=== PATIENT | male | born 1955 | race Caucasian/White ===

== ENCOUNTER 2022-02-21 15:35 | Emergency (ER) | payer MEDICARE, SELFPAY ==
[2022-02-21 15:36] VITALS: BP 151/67; PULSE 74; RESP 20; TEMP 36.7; O2SAT 96; BMI 29.9
--- NOTE | 2022-02-21 15:49 | ECG_ITS ---
APPROVED REPORT Exam: Resting ECG HR:75 bpm ECG Measurements Heart Rate 75 AXES HI 186 P 59 QRSd 108 QRS 65 QT 373 T 60 QTc 401 Conclusion SINUS RHYTHM POSSIBLE RIGHT VENTRICULAR CONDUCTION DELAY [RSR (QR) IN V1/V2] BORDERLINE ECG UNCONFIRMED REPORT Electronically signed by : Clif Schroeder MD 02/23/2022 17:36:22
--- NOTE | 2022-02-21 15:52 | HMH.EDGENADL ---
ED Disposition Clinical Impression: Tendonitis Disposition: Home, Self-Care Condition on Discharge: Good Additional Instructions: Take Tylenol and Motrin for pain, which will also help reduce the inflammation. Avoid doing repetitive motions of his right elbow for the next few days as this will worsen the numbness and tingling. Return to the emergency department for any new or concerning symptoms, please follow-up with your primary care physician to see how the symptoms are progressing. Referrals: Jignesh Seo MD [Primary Care Provider] - - Critical Care Critical Care Time: No Attestation: On 02/21/22, the high probability of a clinically significant, sudden or life threatening deterioration of the following system(s) required my full and direct attention, intervention and personal management. The time I documented below is in addition to time spent performing reported procedures but includes the following listed in this critical care notation. Medical Decision Making - Medical Records Medical records reviewed: Yes: I reviewed the patient's medical records. - Ryland Inquiry Pt receiving controlled substance: No Vital Signs: 02/21/22 15:36 02/21/22 16:00 Temperature 98.0 F Temperature Source Oral Pulse Rate 74 Pulse Rate [Left Radial] 74 Respiratory Rate 20 Blood Pressure 133/65 Blood Pressure [Right Arm] 151/67 H Blood Pressure Mean [Right Arm] 95 Blood Pressure Source [Right Arm] Automatic Cuff Blood Pressure Position [Right Arm] Sitting 02 Sat by Pulse Oximetry 96 95 Oxygen Delivery Method Room Air - Lab Data Lab results reviewed: Yes: I reviewed the patient's lab results. Lab Results 02/21/22 15:05: WBC 7.4, RBC 4.81, Hgb 15.3, Hct 44.8, MCV 93.1, MCH 31.7 H, MCHC 34.0, RDW 13.9, Plt Count 159, MPV 9.3, Neut % (Auto) 45.4, Lymph % (Auto) 45.1, [place] % (Auto) 4.8, Eos % (Auto) 3.1, Baso % (Auto) 1.5, Neut # (Auto) 3.4, Lymph # (Auto) 3.3, [place] # (Auto) 0.4, Eos # (Auto) 0.2, Baso # (Auto) 0.1 02/21/22 15:05: Sodium 137, Potassium 4.3, Chloride 103, Carbon Dioxide 31 H, Anion Gap 7.3, BUN 13, Creatinine 0.60 L, Estimated Creat Clear 92, Estimated GFR 135, Est GFR ( Amer) 163, Glucose 201 H, Calcium 8.9, Troponin I < 0.01 Result diagrams: 02/21/22 15:05 02/21/22 15:05 Orders (Tests/Meds): ED MEDICATIONS Generic Name Dose Route Start Last Admin Trade Name Freq PRN Reason Stop Dose Admin Sodium Chloride 10 ml 02/21/22 15:59 Sodium Chloride 0.9% 10ml Flush Syringe IV 03/23/22 15:58 NEEDED PRN Maintain IV Site ORDERS Category Date Time Status Troponin I Q3H Lab 02/21/22 19:00 Ordered Troponin I Q3H Lab 02/21/22 22:00 Ordered Medical Decision Narrative: Patient is a 66-year-old male presenting to the emergency department chief complaint of right forearm paresthesias, wrist pain. Differential diagnosis for this patient includes ulnar radiculopathy, intermittent of the lateral antebrachial cutaneous nerve, less, less likely is ACS. However given the patient's history as well the patient concern will order EKG, CBC, CMP, troponin, try to further evaluate. EKG shows normal sinus rhythm with no ST elevation or ST depression. QRS of normal duration. No significant CBC or CMP abnormality. Troponin for this patient was 0.01. Given the patient has had these same symptoms for the past 3 days without other concerning markers, will discharge patient. General Adult HPI - General Stated complaint: r arm numb Time Seen by Provider: 02/21/22 15:52 Mode of Arrival: Ambulatory - History of Present Illness HPI narrative: Patient is a 66-year-old male presenting to emergency department chief complaint of right forearm pain. Patient states that he has had numbness in this area for the past 3 days. He does have sensation to touch however states that he does not feel quite the same. He has pain when he is reaching out for an object. Patient is employed
--- NOTE | 2022-02-21 15:59 | XR_ITS ---
FINAL REPORT CLINICAL HISTORY: RIGHT ARM PAIN X 3 DAYS COMPARISON: 07/30/2016 FINDINGS: Two views of the chest were obtained. The heart size and pulmonary vascularity are within normal limits. The mediastinum is normal. No acute pulmonary abnormality is identified. There is no pneumothorax. The bony thorax is intact. IMPRESSION: No active cardiopulmonary disease. Reviewed, Interpreted and Dictated by Kendell Mendez III, MD Transcribed by Dejon Carreon Authenticated by Kendell Mendez III, MD on 02/21/2022 04:46:25 PM [facility]
[2022-02-21 16:00] VITALS: BP 133/65; PULSE 74; O2SAT 95
[2022-02-21 16:18] LABS: Basophils # 0.1 K/mm3 (0-0.2); Basophils % 1.5 % (0.1-2.0); Eosinophils # 0.2 K/mm3 (0.0-0.4); Eosinophils % 3.1 % (0.1-12.0); Hematocrit 44.8 % (42.0-52.0); Hemoglobin 15.3 g/dL (14.1-18.0); Lymphocytes # 3.3 K/mm3 (0.7-4.5); Lymphocytes % 45.1 % (10-50); Mean Corpuscular Hemoglobin 31.7 pg (27.0-31.2); Mean Corpuscular Volume 93.1 fl (80-94); Mean Platelet Volume 9.3 fl (7.4-10.4); Monocytes # 0.4 K/mm3 (0.1-1.0); Monocytes % 4.8 % (1.7-9.3); Neutrophils # 3.4 K/mm3 (1.8-7.8); Neutrophils % 45.4 % (37.0-80.0); Platelet Count 159 K/mm3 (142-424); Red Blood Count 4.81 M/mm3 (4.60-6.20); Red Cell Distribution Width 13.9 % (11.5-17.5); White Blood Count 7.4 K/mm3 (4.8-10.8)
[2022-02-21 16:24] LABS: Anion Gap 7.3 mEq/L (5-15); Blood Urea Nitrogen 13 mg/dl (9-20); Calcium 8.9 mg/dl (8.4-10.2); Carbon Dioxide 31 mmol/L (22.0-30.0); Chloride 103 mmol/L (98-107); Creatinine Clearance Estimated 92 mL/min (50-200); Estimated Glomerular Filt Rate 135 ml/min (>60); GFR (African American) 163 ML/MIN (>60); Glucose 201 mg/dl (74-100); Potassium 4.3 mmoL/L (3.5-5.1); Sodium 137 mmol/L (136-145)
[2022-02-21 16:30] VITALS: BP 129/60; PULSE 68; O2SAT 96
[2022-02-21 16:40] LABS: Troponin I < 0.01 ng/ml (0.00-0.034)
[2022-02-21 17:00] VITALS: BP 134/82; PULSE 68; O2SAT 96
[2022-02-21 17:18] VITALS: BP 134/82; PULSE 68; RESP 16; TEMP 36.7; O2SAT 96
== END 2022-02-21 17:19 | disposition home or self-care (01) ==
PROVIDERS: Emergency Provider Emergency Medicine; PCP Emergency Medicine
DX: M65.231 Calcific tendinitis, right forearm (principal); I25.2 Old myocardial infarction
CPT/HCPCS: 71046; 80048; 84484; 85025; 93005; 99283

== ENCOUNTER 2022-03-26 21:31 | Emergency (ER) | payer MEDICARE, SELFPAY ==
[2022-03-26 21:41] VITALS: BP 165/78; PULSE 72; RESP 18; TEMP 36.8; O2SAT 94; BMI 27.9
--- NOTE | 2022-03-26 21:43 | ECG_ITS ---
APPROVED REPORT Exam: Resting ECG HR:74 bpm ECG Measurements Heart Rate 74 AXES ME 176 P 39 QRSd 100 QRS 68 QT 366 T 67 QTc 393 Conclusion SINUS RHYTHM NORMAL ECG UNCONFIRMED REPORT Electronically signed by : Clif Schroeedr MD 03/27/2022 08:20:51
--- NOTE | 2022-03-26 21:50 | XR_ITS ---
PROCEDURE INFORMATION: Exam: XR Right Shoulder Exam date and time: 03/26/2022 9:59 PM Age: 66 years old Clinical indication: Pain; Shoulder; Right; Additional info: Pain no known trauma TECHNIQUE: Imaging protocol: XR Right shoulder. Views: 2 or more views. COMPARISON: CR XR CHEST 2V 03/26/2022 9:56 PM FINDINGS: Bones/joints: Degenerative changes. No evidence of acute fracture. Soft tissues: Grossly unremarkable. IMPRESSION: No evidence of acute fracture. If symptoms persist, recommend repeat radiograph in 5-7 days.
--- NOTE | 2022-03-26 21:50 | XR_ITS ---
PROCEDURE INFORMATION: Exam: XR Chest Exam date and time: 03/26/2022 9:56 PM Age: 66 years old Clinical indication: Pain; Right-sided; Additional info: RT shoulder pain (cp protocol) TECHNIQUE: Imaging protocol: XR of the chest. Views: 2 views. COMPARISON: CR XR CHEST 2V 02/21/2022 4:05 PM FINDINGS: Lungs: No focal consolidation. Pleural spaces: No pleural effusion. No pneumothorax. Heart/Mediastinum: Unremarkable cardiomediastinal silhouette. Bones/joints: No acute osseous findings. IMPRESSION: No focal consolidation.
--- NOTE | 2022-03-26 21:50 | XR_ITS ---
PROCEDURE INFORMATION: Exam: XR Right Elbow Exam date and time: 03/26/2022 9:53 PM Age: 66 years old Clinical indication: Pain; Elbow; Right; Additional info: Pain no known trauma TECHNIQUE: Imaging protocol: XR Right elbow. Views: 3 or more views. COMPARISON: No relevant prior studies available. FINDINGS: Bones/joints: No evidence of acute fracture. No definite joint effusion. Degenerative changes. Soft tissues: Grossly unremarkable. IMPRESSION: No evidence of acute fracture. If symptoms persist, recommend repeat radiograph in 5-7 days.
[2022-03-26 22:29] LABS: Basophils # 0.2 K/mm3 (0-0.2); Basophils % 1.8 % (0.1-2.0); Eosinophils # 0.3 K/mm3 (0.0-0.4); Eosinophils % 3.8 % (0.1-12.0); Hematocrit 46.6 % (42.0-52.0); Lymphocytes % 45.8 % (10-50); Mean Corpuscular HGB Conc 34.4 g/dL (31.8-35.4); Mean Corpuscular Volume 92.9 fl (80-94); Mean Platelet Volume 8.8 fl (7.4-10.4); Monocytes # 0.5 K/mm3 (0.1-1.0); Monocytes % 6.1 % (1.7-9.3); Neutrophils # 3.7 K/mm3 (1.8-7.8); Neutrophils % 42.5 % (37.0-80.0); Platelet Count 180 K/mm3 (142-424); Red Blood Count 5.02 M/mm3 (4.60-6.20); Red Cell Distribution Width 13.8 % (11.5-17.5); White Blood Count 8.7 K/mm3 (4.8-10.8)
--- NOTE | 2022-03-26 22:29 | HMH.EDEXTP ---
ED Disposition Clinical Impression: Cervical radicular pain Disposition: Home, Self-Care Condition on Discharge: Good Instructions: DI for Cervical Radiculopathy Additional Instructions: use meds and see pcp for follow up Prescriptions: predniSONE [Prednisone 20mg Tab] 20 mg PO BID #10 tab Transmission Status: Pending to [facility] Ketorolac Tromethamine [Toradol 10mg tablet] 10 mg PO Q6HP PRN #8 tab MDD 40mg/day PRN Reason: Moderate To Severe Pain Transmission Status: Pending to [facility] Referrals: Jignesh Seo MD [Primary Care Provider] - - Critical Care Critical Care Time: No Attestation: On 03/26/22, the high probability of a clinically significant, sudden or life threatening deterioration of the following system(s) required my full and direct attention, intervention and personal management. The time I documented below is in addition to time spent performing reported procedures but includes the following listed in this critical care notation. Medical Decision Making - Medical Records Medical records reviewed: Yes: I reviewed the patient's medical records. - Ryland Inquiry Pt receiving controlled substance: No Vital Signs: 03/26/22 21:41 Temperature 98.3 F Temperature Source Oral Pulse Rate [Apical] 72 Respiratory Rate 18 Blood Pressure [Right Arm] 165/78 H Blood Pressure Mean [Right Arm] 107 Blood Pressure Source [Right Arm] Automatic Cuff Blood Pressure Position [Right Arm] Sitting 02 Sat by Pulse Oximetry 94 L Oxygen Delivery Method Room Air - Lab Data Lab results reviewed: Yes: I reviewed the patient's lab results. Lab Results 03/26/22 22:22: WBC 8.7, RBC 5.02, Hgb 16.0, Hct 46.6, MCV 92.9, MCH 32.0 H, MCHC 34.4, RDW 13.8, Plt Count 180, MPV 8.8, Neut % (Auto) 42.5, Lymph % (Auto) 45.8, [place] % (Auto) 6.1, Eos % (Auto) 3.8, Baso % (Auto) 1.8, Neut # (Auto) 3.7, Lymph # (Auto) 4.0, [place] # (Auto) 0.5, Eos # (Auto) 0.3, Baso # (Auto) 0.2, ESR 11 03/26/22 22:22: Sodium 139, Potassium 4.1, Chloride 104, Carbon Dioxide 28, Anion Gap 11.1, BUN 10, Creatinine 0.60 L, Estimated Creat Clear 91, Estimated GFR 135, Est GFR ( Amer) 163, Glucose 164 H, Calcium 9.1, Total Bilirubin 0.6, AST 28, ALT 25, Alkaline Phosphatase 109, Troponin I < 0.01, C-Reactive Protein 4.2 H, Total Protein 6.6, Albumin 4.0, Globulin 2.6, Albumin/Globulin Ratio 1.5, Procalcitonin 0.072 Result diagrams: 03/26/22 22:22 03/26/22 22:22 Orders (Tests/Meds): ED MEDICATIONS Generic Name Dose Route Start Last Admin Trade Name Freq PRN Reason Stop Dose Admin Sodium Chloride 1,000 mls @ 999 mls/hr 03/26/22 22:00 03/26/22 22:24 Sod Chlor 0.9% 1000ml Bag IV 03/26/22 23:00 999 mls/hr .Q1H1M NIKKI Administration Discontinued Medications Generic Name Dose Route Start Last Admin Trade Name Freq PRN Reason Stop Dose Admin Hydromorphone HCl 1 mg 03/26/22 22:59 03/26/22 23:06 Hydromorphone 2mg/Ml Syringe IV 03/26/22 23:00 1 mg ONCE ONE Administration Ketorolac Tromethamine 30 mg 03/26/22 21:52 03/26/22 22:24 Ketorolac 30mg/Ml Vial IV 03/26/22 21:53 30 mg ONCE ONE Administration Methylprednisolone Sodium Succinate 125 mg 03/26/22 22:59 03/26/22 23:05 Methylprednisolone Sod Succ 125mg Vial IV 03/26/22 23:00 125 mg ONCE ONE Administration ORDERS Category Date Time Status Troponin I Q3H Lab 03/27/22 01:00 Ordered Troponin I Q3H Lab 03/27/22 04:00 Ordered - Radiology Data #1 Image(s): Chest, C-Spine, Shoulder, Elbow Image Reviewed: Yes I have reviewed radiologist's interpretation Preliminary Findings: No Fracture Seen - ECG Data Tracing #1 Normal Sinus Rhythm: Yes Ischemic changes: non-specific ST-T wave changes - KRISTI Score for Non-Stemi Age of Patient: 60-69 years old Heart Rate: 70-89 bpm Systolic Blood Pressure: 160-199 mmHg Serum Creatinine: 0.40-0.79 mg/dl CHF [place] Class: I-No CHF Other Risk Factors
--- NOTE | 2022-03-26 22:30 | XR_ITS ---
PROCEDURE INFORMATION: Exam: XR Cervical Spine Exam date and time: 03/26/2022 10:48 PM Age: 66 years old Clinical indication: Neck pain; Additional info: Neck pain radiating down RT arm TECHNIQUE: Imaging protocol: XR of the cervical spine. Views: 4 or 5 views. COMPARISON: CR XR SHOULDER RT MIN 2V 03/26/2022 9:59 PM FINDINGS: Bones/joints: Limited study as the tip of the odontoid process is not well visualized. Otherwise no definite evidence of acute fracture in the cervical spine. Soft tissues: Unremarkable. IMPRESSION: Limited study as the tip of the odontoid process is not well visualized. Otherwise no definite evidence of acute fracture in the cervical spine.
[2022-03-26 22:37] LABS: Alanine Aminotransferase 25 U/L (12-78); Albumin/Globulin Ratio 1.5 (1.1-1.8); Alkaline Phosphatase 109 U/L (38-126); Anion Gap 11.1 mEq/L (5-15); Aspartate Amino Transferase 28 U/L (17-59); Bilirubin,Total 0.6 mg/dl (0.2-1.3); Blood Urea Nitrogen 10 mg/dl (9-20); Calcium 9.1 mg/dl (8.4-10.2); Carbon Dioxide 28 mmol/L (22.0-30.0); Chloride 104 mmol/L (98-107); Creatinine Clearance Estimated 91 mL/min (50-200); Estimated Glomerular Filt Rate 135 ml/min (>60); GFR (African American) 163 ML/MIN (>60); Globulin 2.6 g/dL (1.3-3.2); Glucose 164 mg/dl (74-100); Potassium 4.1 mmoL/L (3.5-5.1); Sodium 139 mmol/L (136-145); Total Protein,Serum 6.6 g/dl (6.3-8.2)
[2022-03-26 22:42] LABS: C-Reactive Protein 4.2 mg/L (0-4)
[2022-03-26 22:52] LABS: Erythrocyte Sedimentation Rate 11 mm/hr (0-20); Troponin I < 0.01 ng/ml (0.00-0.034)
[2022-03-26 22:56] LABS: Procalcitonin 0.072 ng/mL (0.0-2.0)
[2022-03-26 23:10] VITALS: BP 124/73
[2022-03-26 23:30] VITALS: BP 147/71
[2022-03-26 23:41] VITALS: BP 160/70; PULSE 70; RESP 18; TEMP 36.8; O2SAT 99
== END 2022-03-26 23:45 | disposition home or self-care (01) ==
PROVIDERS: Emergency Provider Emergency Medicine; PCP Emergency Medicine
DX: M54.2 Cervicalgia (principal); M54.12 Radiculopathy, cervical region; M25.511 Pain in right shoulder; Z79.82 Long term (current) use of aspirin; Z79.899 Other long term (current) drug therapy; Z88.6 Allergy status to analgesic agent; I25.2 Old myocardial infarction
CPT/HCPCS: 71046; 72050; 73030; 73080; 80053; 84145; 84484; 85025; 85651; 86140; 93005; 96360; 96365; 96375; 99284

== ENCOUNTER 2022-04-17 10:05 | Emergency (ER) | payer MEDICARE, SELFPAY ==
[2022-04-17] VITALS (9 sets, daily range): BP systolic 107–126; BP diastolic 60–68; PULSE 65–73; RESP 13–18; TEMP 36.9; O2SAT 93–98; BMI 27.8
--- NOTE | 2022-04-17 10:56 | ECG_ITS ---
APPROVED REPORT Exam: Resting ECG HR:70 bpm ECG Measurements Heart Rate 70 AXES MN 181 P 53 QRSd 109 QRS 62 QT 375 T 47 QTc 396 Conclusion SINUS RHYTHM POSSIBLE RIGHT VENTRICULAR CONDUCTION DELAY [RSR (QR) IN V1/V2] BORDERLINE ECG UNCONFIRMED REPORT Electronically signed by : Clif Schroeder MD 04/21/2022 21:25:09
--- NOTE | 2022-04-17 11:08 | HMH.EDGENADL ---
ED Disposition Clinical Impression: Acute exacerbation of chronic obstructive airways disease Disposition: Home, Self-Care Condition on Discharge: Fair Instructions: DI for Emphysema Additional Instructions: Follow-up with your primary care physician a appointment on Monday. Would also recommend that you get referred to a boat outfitter. Referrals: Rikki Scott [Primary Care Provider] - - Critical Care Critical Care Time: No Attestation: On 04/17/22, the high probability of a clinically significant, sudden or life threatening deterioration of the following system(s) required my full and direct attention, intervention and personal management. The time I documented below is in addition to time spent performing reported procedures but includes the following listed in this critical care notation. Medical Decision Making - Medical Records Medical records reviewed: Yes: I reviewed the patient's medical records. - Ryland Inquiry Pt receiving controlled substance: No Vital Signs: 04/17/22 10:06 04/17/22 11:00 04/17/22 11:25 Temperature 98.4 F Temperature Source Oral Pulse Rate 65 69 Pulse Rate [Left Radial] 73 Respiratory Rate 18 16 Blood Pressure 116/64 Blood Pressure [Right Arm] 121/60 Blood Pressure Mean 93 Blood Pressure Mean [Right Arm] 80 Blood Pressure Source [Right Arm] Automatic Cuff Blood Pressure Position [Right Arm] Sitting 02 Sat by Pulse Oximetry 96 96 Oxygen Delivery Method Room Air Room Air 04/17/22 11:31 04/17/22 12:00 04/17/22 12:46 Temperature Temperature Source Pulse Rate 73 73 69 Pulse Rate [Left Radial] Respiratory Rate 13 18 Blood Pressure 112/61 121/68 118/67 Blood Pressure [Right Arm] Blood Pressure Mean 87 86 85 Blood Pressure Mean [Right Arm] Blood Pressure Source [Right Arm] Blood Pressure Position [Right Arm] 02 Sat by Pulse Oximetry 98 93 L 95 Oxygen Delivery Method Room Air Room Air 04/17/22 13:00 04/17/22 13:31 Temperature Temperature Source Pulse Rate 70 69 Pulse Rate [Left Radial] Respiratory Rate 14 14 Blood Pressure 126/67 118/66 Blood Pressure [Right Arm] Blood Pressure Mean 93 86 Blood Pressure Mean [Right Arm] Blood Pressure Source [Right Arm] Blood Pressure Position [Right Arm] 02 Sat by Pulse Oximetry 98 96 Oxygen Delivery Method Orders (Tests/Meds): ED MEDICATIONS Generic Name Dose Route Start Last Admin Trade Name Freq PRN Reason Stop Dose Admin Albuterol Sulfate 2 puff 04/17/22 13:57 Albuterol-Hfa 90mcg/Puff Inhaler 8gm IH 05/17/22 13:56 Q6HP PRN Shortness Of Breath Discontinued Medications Generic Name Dose Route Start Last Admin Trade Name Freq PRN Reason Stop Dose Admin Albuterol/Ipratropium 9 ml 04/17/22 12:59 Ipratropium/Albuterol 3 Ml Neb IH 04/17/22 13:00 ONCE ONE Methylprednisolone Sodium Succinate 125 mg 04/17/22 12:59 04/17/22 13:44 Methylprednisolone Sod Succ 125mg Vial IV 04/17/22 13:00 125 mg ONCE ONE Administration Miscellaneous 1 unit 04/17/22 13:57 Aerochamber/Optihaler MC 04/17/22 13:58 ONCE ONE Ondansetron HCl 4 mg 04/17/22 13:56 Ondansetron 4mg/2ml Vial IV 04/17/22 13:57 ONCE ONE Medical Decision Narrative: Patient is a 66-year-old male presented to emergency department chief complaint of shortness of breath. Patient states that he has acute on chronic shortness of breath, he is currently felt more short of breath over the past 3 days. States that when he generally comes into the emergency department and has a nebulization he has improvement in this. Differential diagnosis for this patient includes pneumonia, COPD, pleural effusion, pulmonary fibrosis, and others. Patient is hemodynamically stable, saturating well on room air, nontachycardic afebrile. Given this ordered duo nebs for patient as well as chest x-ray. Patient had minimal improvement after first DuoNeb, patient w
--- NOTE | 2022-04-17 11:15 | XR_ITS ---
PROCEDURE INFORMATION: Exam: XR Chest Exam date and time: 04/17/2022 11:40 AM Age: 66 years old Clinical indication: Shortness of breath; Additional info: Wheezing, SOA TECHNIQUE: Imaging protocol: XR of the chest. Views: 1 view. COMPARISON: CR XR CHEST 2V 03/26/2022 9:56 PM FINDINGS: Lungs: COPD, interstitial prominence, and chronic granulomatous disease. Pleural spaces: No pleural effusion. Heart/Mediastinum: Epicardial fat, without cardiomegaly. Vasculature: Calcification of the thoracic aorta. Bones/joints: Degenerative change. IMPRESSION: COPD, interstitial prominence, and chronic granulomatous disease.
--- NOTE | 2022-04-17 13:44 | PC.NURSE ---
pt refused breathing tx per resp
== END 2022-04-17 14:31 | disposition home or self-care (01) ==
PROVIDERS: Emergency Provider Emergency Medicine; PCP Internal Medicine
DX: J44.1 Chronic obstructive pulmonary disease with (acute) exacerbation (principal); I25.2 Old myocardial infarction; Z88.5 Allergy status to narcotic agent
CPT/HCPCS: 71045; 93005; 96374; 96375; 99284; J2405

== ENCOUNTER 2022-05-27 17:00 | Outpatient (RCR) | payer MEDICARE, SELFPAY | END 2022-05-27 17:05 | disposition home or self-care (01) | LOC: PT 17:00 | PROVIDERS: PCP Emergency Medicine; Visit Provider Internal Medicine | DX: M25.511 Pain in right shoulder (principal) | CPT/HCPCS: 97010; 97012; 97014; 97033; 97035; 97110; 97163; 97164; G0283 ==

== ENCOUNTER 2023-03-16 18:35 | Emergency (ER) | payer MEDICARE, SELFPAY ==
[2023-03-16] VITALS (8 sets, daily range): BP systolic 124–151; BP diastolic 56–82; PULSE 84–113; RESP 17; TEMP 37.2–38.1; O2SAT 91–97; BMI 29.2
--- NOTE | 2023-03-16 19:00 | HMH.EDGENADL ---
Discharge Plan Disposition Patient Disposition: Still a Patient Prescriptions Prescriptions: No Action atorvastatin 40 MG tablet 40 mg PO HS clopidogrel 75 MG tablet 75 mg PO DAILY lisinopril 10 MG tablet 10 mg PO DAILY metoprolol tartrate 25 MG tablet 25 mg PO BID aspirin 81 MG tablet,chewable 81 mg PO DAILY prednisone 20 MG tablet 20 mg PO BID Qty: 10 0RF ketorolac 10 MG tablet 10 mg PO Q6HP MDD 40mg/day PRN (Reason: Moderate To Severe Pain) Qty: 8 0RF Rx Instructions: Therapy initiated with IV/IM dose Referrals Follow up/Referrals: Clif Schroeder MD [Primary Care Provider] - See instructions Clinical Impressions Clinical Impression: Acute exacerbation of chronic obstructive airways disease Discharge ED Provider: Denise Sahni General Adult HPI General Chief complaint: Upper Respiratory Infection Stated complaint: Cough, Back pain, Chills, Diziness Time Seen by Provider: 03/16/23 19:00 Mode of Arrival: Ambulatory Source of Information: Patient Limitations: No Limitations Description of Symptoms (Recalled from ER Triage Doc. by RN): pt to ED with cough, congestion and body aches x 1 week accompanied by nausea and diarrhea since monday night. pt does report they were exposed to their daughter who had a stomach virus over the weekend. pt denies any chest pain or SOB at this time. History of Present Illness HPI narrative: Patient is a 67-year-old male with a history of COPD and coronary disease presenting today with 4 days of fevers chills cough some nausea vomiting diarrhea. This began with nausea vomiting diarrhea but since that time those symptoms resolved and now has fever chills cough some increasing wheezing. Tmax of 102 at home has not had any antipyretics today. Patient states that he still nauseated at the moment denies any significant abdominal pain or chest pain. Related Data Home Medications Medication Instructions Recorded Confirmed aspirin 81 mg chewable tablet 81 mg PO DAILY heart health 03/26/22 03/26/22 atorvastatin 40 mg tablet 40 mg PO HS Cholesterol 03/26/22 03/26/22 clopidogrel 75 mg tablet 75 mg PO DAILY antiplatelet 03/26/22 03/26/22 lisinopril 10 mg tablet 10 mg PO DAILY Hypertension 03/26/22 03/26/22 metoprolol tartrate 25 mg tablet 25 mg PO BID hypertension 03/26/22 03/26/22 Previous Rx's Medication Instructions Recorded ketorolac 10 mg tablet 10 mg PO Q6HP PRN Moderate To 03/26/22 Severe Pain #8 tabs prednisone 20 mg tablet 20 mg PO BID #10 tabs 03/26/22 Allergies Allergy/AdvReac Type Severity Reaction Status Date / Time codeine [CODEINE] Allergy Unknown Rash Verified 03/26/22 22:17 [facility] Disclaimer: The information contained in this section may have been updated after the patient was seen, as this information can be updated by other users. Social History Smoking Status: Never smoker alcohol intake: never current occupational status: other Travel in the last 8 weeks: None ROS Obtained: Yes All systems reviewed & no additional complaints except as documented Physical Exam General General appearance: alert and in no apparent distress Respiratory Respiratory exam: Present other (Diffuse wheezing most focally right lower lobe no excess or muscle use no prolonged expiratory phase speaking in full sentences) Cardiovascular Cardiovascular exam: Present tachycardia and other (Good peripheral perfusion) Neurological Exam Neurological exam: Present alert Medical Decision Making Ryland Inquiry Pt receiving controlled substance: No Vital Signs: 03/16/23 18:37 Temperature 100.6 F H Temperature Source Oral Pulse Rate [Left Radial] 113 H Respiratory Rate 17 Blood Pressure [Right Arm] 151/80 H Blood Pressure Mean [Right Arm] 103 Blood Pressure Source [Right Arm] Automatic Cuff Blood Pressure Position [Right Arm] Sitting 02 Sat by Pulse Oximetry 97 Oxygen Delivery Method Room Air Orders
[2023-03-16 19:03] LABS: Coronavirus 19, PCR Not Detected (NotDetected); Influenza A, PCR Not Detected (NotDetected); Influenza B, PCR Not Detected (NotDetected)
--- NOTE | 2023-03-16 19:09 | XR_ITS ---
PROCEDURE INFORMATION: Exam: XR Chest Exam date and time: 03/16/2023 7:28 PM Age: 67 years old Clinical indication: Dyspnea TECHNIQUE: Imaging protocol: Radiologic exam of the chest. Views: 1 view. COMPARISON: CR XR CHEST PORTABLE 04/17/2022 11:40 AM FINDINGS: Lungs: Unremarkable. No consolidation. Pleural spaces: Unremarkable. No pleural effusion. No pneumothorax. Heart/Mediastinum: Unremarkable. No cardiomegaly. Bones/joints: Moderate degenerative changes noted in the spine and shoulders. IMPRESSION: No acute disease
[2023-03-16 21:05] LABS: Basophils % 0.2 % (0.1-2.0); Eosinophils # 0.1 K/mm3 (0.0-0.4); Eosinophils % 0.4 % (0.1-12.0); Hematocrit 42.6 % (42.0-52.0); Hemoglobin 14.1 g/dL (14.1-18.0); Lymphocytes # 1.9 K/mm3 (0.7-4.5); Lymphocytes % 11.1 % (10-50); Mean Corpuscular HGB Conc 33.1 g/dL (31.8-35.4); Mean Corpuscular Hemoglobin 29.7 pg (27.0-31.2); Mean Corpuscular Volume 89.6 fl (80-94); Mean Platelet Volume 9.2 fl (7.4-10.4); Monocytes # 0.8 K/mm3 (0.1-1.0); Monocytes % 4.8 % (1.7-9.3); Neutrophils # 14.2 K/mm3 (1.8-7.8); Neutrophils % 83.4 % (37.0-80.0); Platelet Count 164 K/mm3 (142-424); Red Blood Count 4.75 M/mm3 (4.60-6.20); Red Cell Distribution Width 13.8 % (11.5-17.5); White Blood Count 17.1 K/mm3 (4.8-10.8)
[2023-03-16 21:07] LABS: MANUAL DIFFERENTIAL MANUAL DIFFERENTIAL (MANUAL DIFF)
[2023-03-16 21:17] LABS: Alanine Aminotransferase 29 U/L (12-78); Albumin Level 3.6 g/dl (3.5-5.0); Albumin/Globulin Ratio 1.1 (1.1-1.8); Alkaline Phosphatase 97 U/L (38-126); Anion Gap 13.1 mEq/L (5-15); Aspartate Amino Transferase 33 U/L (17-59); Bilirubin,Total 1.4 mg/dl (0.2-1.3); Blood Urea Nitrogen 11 mg/dl (9-20); Calcium 8.6 mg/dl (8.4-10.2); Carbon Dioxide 23 mmol/L (22.0-30.0); Chloride 99 mmol/L (98-107); Creatinine Clearance Estimated 97 mL/min (50-200); Estimated Glomerular Filt Rate 134 ml/min (>60); GFR (African American) 163 ML/MIN (>60); Globulin 3.2 g/dL (1.3-3.2); Glucose 140 mg/dl (74-100); Potassium 4.1 mmoL/L (3.5-5.1); Sodium 131 mmol/L (136-145); Total Protein,Serum 6.8 g/dl (6.3-8.2)
[2023-03-16 21:29] LABS: Lymphocytes % 10 % (10-50); Monocytes % 5 % (2-9); Neutrophils % 85 % (42-76); Total Cells Counted 100
[2023-03-16 21:30] LABS: Platelet Estimate Normal; RBC Morphology Normal
== END 2023-03-16 21:36 | disposition home or self-care (01) ==
PROVIDERS: Emergency Provider Student in an Organized Health Care Education/Training Program; PCP Internal Medicine Adolescent Medicine
DX: J44.1 Chronic obstructive pulmonary disease with (acute) exacerbation (principal); R11.2 Nausea with vomiting, unspecified; R19.7 Diarrhea, unspecified
CPT/HCPCS: 71045; 80053; 85007; 85025; 96374; 99285; C9803; U0003; U0005

== ENCOUNTER → 2023-04-03 08:37 | Outpatient (CLI) | payer MEDICARE, SELFPAY ==
[2023-04-03 09:03] LABS: Basophils # 0.1 K/mm3 (0-0.2); Basophils % 1.1 % (0.1-2.0); Eosinophils # 0.2 K/mm3 (0.0-0.4); Eosinophils % 3.5 % (0.1-12.0); Hematocrit 44.9 % (42.0-52.0); Hemoglobin 14.5 g/dL (14.1-18.0); Lymphocytes # 2.5 K/mm3 (0.7-4.5); Lymphocytes % 42.2 % (10-50); Mean Corpuscular HGB Conc 32.3 g/dL (31.8-35.4); Mean Corpuscular Hemoglobin 29.5 pg (27.0-31.2); Mean Corpuscular Volume 91.4 fl (80-94); Mean Platelet Volume 8.2 fl (7.4-10.4); Monocytes # 0.3 K/mm3 (0.1-1.0); Monocytes % 4.7 % (1.7-9.3); Neutrophils # 2.9 K/mm3 (1.8-7.8); Neutrophils % 48.5 % (37.0-80.0); Platelet Count 203 K/mm3 (142-424); Red Blood Count 4.91 M/mm3 (4.60-6.20); Red Cell Distribution Width 14.3 % (11.5-17.5)
[2023-04-03 09:17] LABS: Hemoglobin A1C 6.1 % (4.0-6.0)
[2023-04-03 09:49] LABS: Chloride 99 mmol/L (98-107); Potassium 4.7 mmoL/L (3.5-5.1); Sodium 136 mmol/L (136-145)
[2023-04-03 09:52] LABS: Alanine Aminotransferase 28 U/L (12-78); Albumin Level 3.6 g/dl (3.5-5.0); Albumin/Globulin Ratio 1.4 (1.1-1.8); Alkaline Phosphatase 101 U/L (38-126); Anion Gap 11.7 mEq/L (5-15); Aspartate Amino Transferase 25 U/L (17-59); Bilirubin,Total 0.5 mg/dl (0.2-1.3); Blood Urea Nitrogen 10 mg/dl (9-20); Carbon Dioxide 30 mmol/L (22.0-30.0); Cholesterol 125 mg/dl (140-200); Estimated Glomerular Filt Rate 134 ml/min (>60); GFR (African American) 163 ML/MIN (>60); Globulin 2.5 g/dL (1.3-3.2); Glucose 111 mg/dl (74-100); Total Protein,Serum 6.1 g/dl (6.3-8.2); Triglycerides 112 mg/dl (30-150); VLDL Cholesterol 22 mg/dL (0-40)
[2023-04-03 09:53] LABS: Chol/HDL Ratio 2.4 (1-3.5); HDL Cholesterol 53 mg/dl (40-60)
[2023-04-03 10:03] LABS: Direct LDL Cholesterol 61.97 mg/dL (100-129)
[2023-04-04 09:14] LABS: PSA, Free 0.39 ng/mL; Prostate Specific Ag 3.2 ng/mL (0.0-4.0)
== END ==
LOC: LAB 08:39
PROVIDERS: PCP Internal Medicine Adolescent Medicine; Visit Provider Nurse Practitioner Family
DX: I25.10 Atherosclerotic heart disease of native coronary artery without angina pectoris (principal); I10 Essential (primary) hypertension; R63.4 Abnormal weight loss; R39.12 Poor urinary stream
CPT/HCPCS: 36415; 80053; 80061; 83036; 84153; 84154; 84443; 85025

== ENCOUNTER → 2023-05-02 15:21 | Outpatient (POV) | payer MEDICARE, SELFPAY | PROVIDERS: Visit Provider Dermatology | DX: Z00.00 Encounter for general adult medical examination without abnormal findings (principal) ==

== ENCOUNTER 2024-02-02 21:29 | Emergency (ER) | payer MEDICARE, SELFPAY ==
[2024-02-02 21:31] VITALS: BP 152/77; PULSE 85; RESP 16; TEMP 36.9; O2SAT 97; BMI 30.4
--- NOTE | 2024-02-02 21:45 | XR_ITS ---
PROCEDURE INFORMATION: Exam: XR Chest Exam date and time: 02/02/2024 9:43 PM Age: 68 years old Clinical indication: Cough; Additional info: Congestion TECHNIQUE: Imaging protocol: Radiologic exam of the chest. Views: 2 views. COMPARISON: CR XR CHEST PORTABLE 03/16/2023 7:28 PM FINDINGS: Lungs: Mild pulmonary vascular congestion. Few scattered calcified granulomas Pleural spaces: No pleural effusion. No pneumothorax. Heart/Mediastinum: No cardiomegaly. Calcified atherosclerotic changes of the thoracic aorta. Bones/joints: No acute findings. IMPRESSION: Mild pulmonary vascular congestion.
[2024-02-02 21:47] LABS: Coronavirus 19, PCR Not Detected (NotDetected); Influenza A, PCR Not Detected (NotDetected); Influenza B, PCR Not Detected (NotDetected)
--- NOTE | 2024-02-02 22:06 | ED_ITS ---
Discharge Plan Disposition Patient Disposition: Home, Self-Care Prescriptions Prescriptions: New doxycycline hyclate 100 mg capsule 100 mg PO BID 5 Days Qty: 10 0RF prednisone 20 mg tablet 40 mg PO DAILY 5 Days Qty: 10 0RF No Action atorvastatin 40 MG tablet 40 mg PO HS clopidogrel 75 MG tablet 75 mg PO DAILY lisinopril 10 MG tablet 10 mg PO DAILY metoprolol tartrate 25 MG tablet 25 mg PO BID aspirin 81 MG tablet,chewable 81 mg PO DAILY prednisone 20 MG tablet 20 mg PO BID Qty: 10 0RF ketorolac 10 MG tablet 10 mg PO Q6HP MDD 40mg/day PRN (Reason: Moderate To Severe Pain) Qty: 8 0RF Rx Instructions: Therapy initiated with IV/IM dose doxycycline hyclate 100 mg capsule 100 mg PO BID 10 Days Qty: 20 0RF prednisone 50 mg tablet 50 mg PO DAILY 5 Days Qty: 5 0RF Rx Instructions: Please begin 1 day after ED visit albuterol sulfate 90 mcg/actuation HFA aerosol inhaler 4 inh inhalation Q4H PRN (Reason: shortness of breath or wheezing) Qty: 8.5 0RF Rx Instructions: 4 puffs every 4 hours for 48 hours then as needed for shortness of breath or wheezing following Referrals Follow up/Referrals: Provider,Referral, MD [Primary Care Provider] - See instructions Activity Restrictions/Add. Instructions Additional Instructions/Restrictions: Call your family doctor to establish care for this visit to the emergency department and schedule follow-up within 48 hours to ensure improvement. If you have any worsening of your condition or any other concerning signs or symptoms, return to the emergency department or your primary care doctor for further evaluation. Doxycycline twice daily for 5 days. Prednisone once daily every morning for 5 days. Clinical Impressions Clinical Impression: Acute exacerbation of chronic obstructive pulmonary disease Discharge ED Provider: William Mosquera General Adult HPI General Chief complaint: Upper Respiratory Infection Stated complaint: st chest congestion persistant cough silverio Time Seen by Provider: 02/02/24 21:43 Mode of Arrival: Ambulatory Source of Information: Patient Limitations: No Limitations Description of Symptoms (Recalled from ER Triage Doc. by RN): pt c/o Silverio,sore throat, cough,chest congestion x 7 days History of Present Illness HPI narrative: Is a 68-year-old male with history of COPD, CAD on aspirin and Plavix per his cough and chest congestion. This been going on for about a week, getting worse. Patient states that he is coughing more sputum than usual it is white, thick, frothy. Chest pain, nausea or vomiting, fevers or chills, diarrhea or constipation. States that he gets to coughing and cannot stop. Came to the emergency department for this reason. Related Data Home Medications Medication Instructions Recorded Confirmed aspirin 81 mg chewable tablet 81 mg PO DAILY heart health 03/26/22 03/26/22 atorvastatin 40 mg tablet 40 mg PO HS Cholesterol 03/26/22 03/26/22 clopidogrel 75 mg tablet 75 mg PO DAILY antiplatelet 03/26/22 03/26/22 lisinopril 10 mg tablet 10 mg PO DAILY Hypertension 03/26/22 03/26/22 metoprolol tartrate 25 mg tablet 25 mg PO BID hypertension 03/26/22 03/26/22 Previous Rx's Medication Instructions Recorded ketorolac 10 mg tablet 10 mg PO Q6HP PRN Moderate To 03/26/22 Severe Pain #8 tabs prednisone 20 mg tablet 20 mg PO BID #10 tabs 03/26/22 albuterol sulfate 90 mcg/actuation 4 inh inhalation Q4H PRN shortness 03/16/23 aerosol inhaler of breath or wheezing #8.5 grams doxycycline hyclate 100 mg capsule 100 mg PO BID 10 days #20 caps 03/16/23 prednisone 50 mg tablet 50 mg PO DAILY 5 days #5 tabs 03/16/23 doxycycline hyclate 100 mg capsule 100 mg PO BID 5 days #10 caps 02/02/24 prednisone 20 mg tablet 40 mg (2 x 20 mg) PO DAILY 5 days 02/02/24 #10 tabs Allergies Allergy/AdvReac Type Severity Reaction Status Date / Time codeine [CODEINE] Allergy Unknown Rash Verified 03/26/22 22:17 [facility] Disclaimer: The information contained in this section may have been updated after the patient was seen, as this information can be updated by other users. Social History (Updated 03/16/23 @ 19:15 by Denise Sahni MD) Smoking Status: Never smoker alcohol intake: never current occupational status: other Travel in the last 8 weeks: None ROS Obtained: Yes All systems reviewed & no additional complaints except as documented Physical Exam General General appearance: alert and in no apparent distress Head Head exam: atraumatic and normocephalic Eye Eye exam: Present normal appearance, PERRL and EOMI ENT ENT exam: Present mucous membranes moist Neck Neck exam: Present normal inspection, full ROM and trachea midline Respiratory Respiratory exam: Present wheezes (Diffuse, bilateral); Absent normal lung sounds bilaterally, respiratory distress, stridor, accessory muscle use or prolonged expiratory phase Cardiovascular Cardiovascular exam: Present regular rate and normal rhythm Abdominal Exam Abdominal exam: Present soft; Absent distention, tenderness, guarding, rebound or rigidity Extremities Exam Extremities exam: Absent edema Neurological Exam Neurological exam: Present alert, oriented X3, CN II-XII intact and normal gait; Absent motor sensory deficit Skin Skin exam: Present warm and dry; Absent diaphoresis or erythema Medical Decision Making Medical Records Medical records reviewed: Yes I reviewed the patient's medical records. [place] Inquiry Pt receiving controlled substance: No [place] was queried for this patient: No Vital Signs: 02/02/24 21:31 02/02/24 22:20 02/02/24 22:35 Temperature 98.4 F Temperature Source Oral Pulse Rate 70 74 Pulse Rate [Right] 85 Respiratory Rate 16 Blood Pressure Blood Pressure [Right Arm] 152/77 H Blood Pressure Mean [Right Arm] 102 02 Sat by Pulse Oximetry 97 Oxygen Delivery Method 02/02/24 22:53 Temperature 98.2 F Temperature Source Pulse Rate 72 Pulse Rate [Right] Respiratory Rate 18 Blood Pressure 140/68 Blood Pressure [Right Arm] Blood Pressure Mean [Right Arm] 02 Sat by Pulse Oximetry Oxygen Delivery Method Room Air Lab Data Lab Results 02/02/24 21:40: SARS-CoV-2 (PCR) Not detected, Influenza A Untype (PCR) Not detected, Influenza Type B (PCR) Not detected Orders (Tests/Meds): ED MEDICATIONS Discontinued Medications Generic Name Dose Route Start Last Admin Trade Name Freq PRN Reason Stop Dose Admin Albuterol/Ipratropium 6 ml 02/02/24 21:52 02/02/24 22:20 Ipratropium/Albuterol 3 Ml Neb IH 02/02/24 21:53 6 ml ONCE ONE Administration Dexamethasone 10 mg 02/02/24 21:52 02/02/24 22:21 Dexamethasone 4mg Tablet PO 02/02/24 21:53 10 mg ONCE ONE Administration Doxycycline Hyclate 100 mg 02/02/24 22:40 02/02/24 22:47 Doxycycline Hycl 100 Mg Tablet PO 02/02/24 22:41 100 mg ONCE ONE Administration ORDERS Category Date Time Status Chest XR 2 view (NOT portable) [XR chest 2V] Stat Exams 02/02/24 21:45 Completed Rapid PCR Covid and Flu A/B Stat Lab 02/02/24 21:40 Completed Medical Decision Narrative: Is a 68-year-old male with history of COPD, CAD on aspirin and Plavix per his cough and chest congestion. This been going on for about a week, getting worse. Patient states that he is coughing more sputum than usual it is white, thick, frothy. Chest pain, nausea or vomiting, fevers or chills, diarrhea or co nstipation. States that he gets to coughing and cannot stop. Came to the emergency department for this reason. History was obtained via conversation with patient. On arrival, patient hemodynamically stable, alert, oriented x4, appropriate, GCS 15, moving all extremities spontaneously, pupils equal and reactive to light. Full physical exam performed and significant for well- appearing male no acute distress. Intermittently coughing in fits. Bilateral wheezing diffusely with prolonged expiratory phase. No focal breath sounds. Differential includes COPD exacerbation, bronchitis, pneumonia, among others. Patient was given DuoNeb x 2, Decadron p.o. for symptomatic management and correction of underlying abnormalities. Workup independently interpreted and significant for negative COVID and flu, no acute cardiopulmonary airspace disease.. See radiology read for full review of final results. On reevaluation, patient given first dose of doxycycline. Feeling much better after DuoNeb and steroid. Given patient presentation, workup, history, this most likely represents acute COPD exacerbation. Because patient at baseline without signs or symptoms of clinical decompensation, deemed appropriate for discharge. Results were relayed to patient who voiced understanding and were agreeable to outpatient management and follow up. At the time of discharge the patient was hemodynamically stable, tolerating PO, and mobilizing appropriately. Critical Care Critical Care Time Critical Care Time: No
[2024-02-02 22:20] VITALS: PULSE 70
[2024-02-02] MEDS: IPRATROPIUM/ALBUTEROL 3 ML NEB 6 ML IH (22:20)
[2024-02-02] MEDS: DEXAMETHASONE 4MG TABLET 10 MG PO (22:21)
[2024-02-02 22:35] VITALS: PULSE 74
[2024-02-02] MEDS: DOXYCYCLINE HYCL 100 MG TABLET PO (22:47)
[2024-02-02 22:53] VITALS: BP 140/68; PULSE 72; RESP 18; TEMP 36.8; O2SAT 96
== END 2024-02-02 22:55 | disposition home or self-care (01) ==
PROVIDERS: Emergency Provider Emergency Medicine
DX: J44.1 Chronic obstructive pulmonary disease with (acute) exacerbation (principal); R51.9 Headache, unspecified; R05.9 Cough, unspecified; I25.10 Atherosclerotic heart disease of native coronary artery without angina pectoris; Z79.02 Long term (current) use of antithrombotics/antiplatelets; Z79.82 Long term (current) use of aspirin
CPT/HCPCS: 71046; 87636; 99284

== ENCOUNTER 2024-04-29 10:18 | Outpatient (CLI) | payer MEDICARE, SELFPAY ==
[2024-04-29 18:39] LABS: Basophils # 0.1 K/mm3 (0-0.2); Basophils % 1.5 % (0.1-2.0); Eosinophils # 0.5 K/mm3 (0.0-0.4); Hematocrit 47.8 % (42.0-52.0); Hemoglobin 15.6 g/dL (14.1-18.0); Lymphocytes # 2.7 K/mm3 (0.7-4.5); Mean Corpuscular HGB Conc 32.6 g/dL (31.8-35.4); Mean Corpuscular Hemoglobin 31.5 pg (27.0-31.2); Mean Corpuscular Volume 96.7 fl (80-94); Mean Platelet Volume 11.1 fl (7.4-10.4); Monocytes # 0.3 K/mm3 (0.1-1.0); Monocytes % 4.8 % (1.7-9.3); Neutrophils # 3.3 K/mm3 (1.8-7.8); Neutrophils % 47.8 % (37.0-80.0); Platelet Count 155 K/mm3 (142-424); Red Blood Count 4.95 M/mm3 (4.60-6.20); Red Cell Distribution Width 14.6 % (11.5-17.5)
[2024-04-29 19:18] LABS: Alanine Aminotransferase 22 U/L (12-78); Albumin Level 3.9 g/dl (3.5-5.0); Albumin/Globulin Ratio 1.4 (1.1-1.8); Alkaline Phosphatase 108 U/L (38-126); Anion Gap 15.4 mEq/L (5-15); Aspartate Amino Transferase 25 U/L (17-59); Bilirubin,Total 0.6 mg/dl (0.2-1.3); Blood Urea Nitrogen 12 mg/dl (9-20); Calcium 9.1 mg/dl (8.4-10.2); Carbon Dioxide 23 mmol/L (22.0-30.0); Chloride 103 mmol/L (98-107); Chol/HDL Ratio 7.9 (1-3.5); Cholesterol 269 mg/dl (140-200); Estimated Glomerular Filt Rate 134 ml/min (>60); GFR (African American) 162 ML/MIN (>60); Globulin 2.7 g/dL (1.3-3.2); Glucose 166 mg/dl (74-100); HDL Cholesterol 34 mg/dl (40-60); Potassium 4.4 mmoL/L (3.5-5.1); Sodium 137 mmol/L (136-145); Total Protein,Serum 6.6 g/dl (6.3-8.2)
[2024-04-29 19:29] LABS: Direct LDL Cholesterol 99.77 mg/dL (100-129)
[2024-04-29 19:41] LABS: 25-OH Vitamin D, Total < 12.8 ng/mL (30-100)
[2024-04-29 19:46] LABS: Hemoglobin A1C 7.7 % (4.0-6.0)
[2024-04-29 19:47] LABS: Prostate Specific Ag Screen 1.5 ng/ml (0.0-4.0); Thyroid Stimulating Hormone 0.71 uIU/mL (0.465-4.68)
[2024-04-29 20:22] LABS: Vitamin B12 588 pg/mL (239-931)
[2024-04-29 20:31] LABS: Folate 5.34 ng/mL
[2024-04-29 20:35] LABS: Triglycerides 755 mg/dl (30-150)
[2024-04-30 11:47] LABS: HIV (1&2) Antibody Rapid NON REACTIVE
[2024-05-01 07:06] LABS: HBsAg Screen Negative (Negative); HCV Ab Non Reactive (Non Reactive); Hep A Ab, IGM Negative (Negative); Hep B Core Ab, IgM Negative (Negative)
== END 2024-04-29 23:59 | disposition home or self-care (01) ==
LOC: LAB.DROPOF 04-30 10:18
PROVIDERS: PCP Internal Medicine; Visit Provider Internal Medicine
DX: Z12.5 Encounter for screening for malignant neoplasm of prostate (principal); E78.5 Hyperlipidemia, unspecified; B34.9 Viral infection, unspecified; R53.83 Other fatigue; R73.09 Other abnormal glucose; E53.8 Deficiency of other specified B group vitamins; E55.9 Vitamin D deficiency, unspecified; Z68.29 Body mass index [BMI] 29.0-29.9, adult
CPT/HCPCS: 80050; 80053; 80061; 80074; 82306; 82607; 82746; 83036; 84443; 85025; G0103

== ENCOUNTER 2024-05-13 12:33 | Outpatient (CLI) | payer MEDICARE, SELFPAY ==
--- NOTE | 2024-05-13 | US_ITS ---
FINAL REPORT CLINICAL HISTORY: Claudication L>R, pain, Smoker, HTN, HLD, CAD COMPARISON: None FINDINGS: LOWER EXTREMITY SEGMENTAL PRESSURE MEASUREMENTS FINDINGS: Pressure indices are as follows: RIGHT LOWER EXTREMITY: Upper thigh: 0.7 Calf: 0.65 Ankle, posterior tibial artery: 0.65 Ankle, dorsalis pedis: 0.62 Toe: 0.3 Comments: Findings are consistent with moderate peripheral vascular disease. LEFT LOWER EXTREMITY: Upper thigh: 0.34 Calf: 0.33 Ankle, posterior tibial artery: 0.48 Ankle, dorsalis pedis: 0.3 Toe: 0.16 Comments: Findings are consistent with severe peripheral vascular disease. IMPRESSION: Findings are consistent with right lower extremity moderate peripheral vascular disease, and left lower extremity severe peripheral vascular disease. Reviewed, Interpreted and Dictated by Amparo Delgado MD Transcribed by Lydia Alvarez Authenticated and [facility]
== END 2024-05-13 23:59 | disposition home or self-care (01) ==
LOC: RT 12:34
PROVIDERS: PCP Internal Medicine; Visit Provider Internal Medicine
DX: M79.604 Pain in right leg (principal); M79.605 Pain in left leg; I73.9 Peripheral vascular disease, unspecified
CPT/HCPCS: 93923

== ENCOUNTER 2024-06-24 12:53 | Observation (INO) | payer MEDICARE, SELFPAY ==
[2024-06-24] VITALS (20 sets, daily range): BP systolic 101–158; BP diastolic 55–75; PULSE 63–110; RESP 16–20; TEMP 36.4–36.9; O2SAT 94–98
--- NOTE | 2024-06-24 07:16 | IR_ITS ---
APPROVED REPORT Patient Location: Outpatient Hand Glove Cleaner: RADHA Mujica RT (R) PROCEDURES Right femoral arterial access Right retrograde femoral angiogram Pigtail catheter placed into the abdominal aorta Abdominal aortography Repositioning of the catheter in the abdominal aorta Bilateral iliofemoral runoff Left femoral arterial access Left femoral artery retrograde angiogram Right radial arterial access Catheter placement in the right radial artery Catheter placement of the left external iliac artery Left external iliac artery antegrade angiogram Angioplasty to the left external iliac artery Bare-metal stent deployment to the left external iliac artery INDICATION Abnormal ALMA 0.4 on the left leg, Occluded left external iliac artery, Rabun claudication class IV-V, Informed consent was obtained prior to the procedure. COMPLICATIONS NONE Estimated Blood Loss: LESS THAN 10 ML TECHNIQUE 1% lidocaine used anesthetize the right groin the right femoral artery was accessed via the cylinder technique and a 5 Swedish sheath space in the right femoral artery. Retrograde angiography was performed. Pigtail catheter was advanced and abdominal aortography was performed. The catheter was then repositioned and bilateral iliofemoral runoff was performed. Following this 1% lidocaine used anesthetize the left groin and the left femoral artery was accessed via the Salinger technique. A 6 Swedish sheath was inserted into the left common femoral artery. Therapeutic heparin was administered giving a therapeutic ACT. A Sos Omni catheter room catheter and multiple advantage wires were used to try to push through the occlusion in the left external iliac artery both in an antegrade and retrograde manner. After multiple attempts the wire could not be reinserted back into the true lumen therefore it was decided to proceed with radial access for improved catheter support. 1% lidocaine was used to size the right anterior aspect of the right wrist and the right radial artery was accessed via the central technique. An arterial cocktail was administered. A 119 cm hydrophilic sheath was advanced into the radial artery under fluoroscopic guidance placed into the left external iliac artery. An advantage wire and trailblazer catheters were used to eventually push through the occlusion in the left external iliac artery. The wire was then reinserted into the left common femoral artery. The left femoral arterial sheath was pulled back and the wire from the right radial artery was eventually placed into the left femoral arterial sheath and then advanced. While the sheath in the left groin was backed out the wire was advanced to where eventually the wire from the right radial artery exited the skin at the left femoral artery. With the wire being now outside of the body from the left femoral artery a 25 cm sheath was then inserted over this wire and placed into the distal abdominal aorta. The wire was then removed from the right radial arterial access point and the sheath was then pulled back into the transverse aorta. A 7 mm x 80 mm balloon was then inflated in the left external iliac artery. Following this an 8 mm x 57 mm bare-metal balloon mounted stent was deployed at 10 michelle reducing the stenosis. An additional 7 mm x 40 mm self-expanding bare-metal stent was placed distal to the first and if still overlapping the stent and placed just proximal to the left common femoral artery. A 7 mm x 40 mm balloon was then deployed at 10 michelle and then at 20 michelle proximally. An 8 mm x 20 mm noncompliant balloon was then deployed in the proximal portion of the left external iliac artery further reducing the stenosis. Excellent intragraft results were obtained with 100% occlusion reduced to 0% with 2 bare-metal stents as described above. After achieving excellent angiographic sterols the right radial sheath was removed good hemostasis was achieved using TR banding patient was transferred to the postop holding area in stable condition for bilateral arterial femoral sheath removal ANGIOGRAPHIC RESULTS Infrarenal abdominal aorta is calcified with 20 to 30% stenosis Right common iliac artery is widely patent with distal 30% stenosis. The right internal iliac artery is patent but severely diseased. The right external iliac artery has proximal 50% distal 50% stenosis. The right common femoral artery is widely patent. The right profunda femoris artery is patent the right superficial femoral artery is severely calcified and diseased throughout its entire course with multiple ED 90% stenoses but is however patent. At Jules's canal there is a greater than 95% stenosis. The right popliteal artery is patent with concentric calcified 50% mid vessel and distal stenoses. There is three-vessel runoff below the knee on the right Left common iliac artery is patent with distal 30 to 40% stenosis. The left external iliac artery is 100% occluded throughout its entire course. The left internal iliac artery has proximal 70 and mid vessel 80% calcified stenosis the left common femoral artery is patent. The left profunda femoris artery is patent. The left superficial femoral artery is severely calcified with diffuse 80 to 90% calcified stenoses. The left popliteal artery is patent. There is three-vessel runoff below the knee on the left IMPRESSION Peripheral artery disease as described above Occluded left external iliac artery Successful reconstruction of the chronically occluded left external iliac artery 100% occlusion reduced to 0% with 2 bare-metal stents as described above Severe bilateral SFA disease as described above Three-vessel runoff below the knee bilaterally PLAN 1. Avoidance of tobacco products 2. Plavix 75 mg daily plus aspirin 81 mg daily 3. Consider Xarelto 2.5 twice daily plus aspirin 81 mg daily 4. LDL less than 55 to be achieved with high intensity statin 5. Physical therapy 6. At this point I am not in favor of revascularizing the bilateral SFA arteries and believe these arteries should be treated medically 7. Patient should be admitted overnight due to 3 different arterial access sites along with copious contrast and complex procedure. Electronically signed by : Rikki Lynn MD 06/24/2024 15:47:49
[2024-06-24 08:19] LABS: Basophils # 0.1 K/mm3 (0-0.2); Basophils % 1.4 % (0.1-2.0); Eosinophils # 0.5 K/mm3 (0.0-0.4); Hematocrit 47.2 % (42.0-52.0); Hemoglobin 15.3 g/dL (14.1-18.0); Lymphocytes # 2.8 K/mm3 (0.7-4.5); Lymphocytes % 36.1 % (10-50); Mean Corpuscular HGB Conc 32.4 g/dL (31.8-35.4); Mean Corpuscular Hemoglobin 31.4 pg (27.0-31.2); Mean Corpuscular Volume 97.1 fl (80-94); Mean Platelet Volume 9.2 fl (7.4-10.4); Monocytes # 0.4 K/mm3 (0.1-1.0); Monocytes % 5.3 % (1.7-9.3); Neutrophils # 3.9 K/mm3 (1.8-7.8); Neutrophils % 51.2 % (37.0-80.0); Platelet Count 158 K/mm3 (142-424); Red Blood Count 4.87 M/mm3 (4.60-6.20); Red Cell Distribution Width 14.3 % (11.5-17.5); White Blood Count 7.7 K/mm3 (4.8-10.8)
[2024-06-24 08:27] LABS: Anion Gap 11.2 mEq/L (5-15); Blood Urea Nitrogen 10 mg/dl (9-20); Calcium 9.3 mg/dl (8.4-10.2); Carbon Dioxide 25 mmol/L (22.0-30.0); Chloride 109 mmol/L (98-107); Creatinine Clearance Estimated 87 mL/min (50-200); Estimated Glomerular Filt Rate 112 ml/min (>60); GFR (African American) 136 ML/MIN (>60); Glucose 158 mg/dl (74-100); Potassium 4.2 mmoL/L (3.5-5.1); Sodium 141 mmol/L (136-145)
[2024-06-24] MEDS: HEPARIN 1,000 UNITS/500ML NS (CATH LAB) 3000 UNIT IV (09:15)
[2024-06-24] MEDS: diphenhydrAMINE 50MG/ML VIAL 50 MG IV (09:15)
[2024-06-24] MEDS: LIDOCAINE 1% 10ML MDV 20 ML IJ (09:17)
[2024-06-24] MEDS: 0.9 % SODIUM CHLORIDE 500 ML 25 ML IV (09:18)
[2024-06-24] MEDS: MIDAZOLAM HCL 1MG/1ML 5ML VIAL 1 MG IV (09:18)
[2024-06-24] MEDS: FENTANYL 100MCG/2ML VIAL 50 MCG IV (09:19)
[2024-06-24] MEDS: HEPARIN 1,000 UNITS/ML 10ML VIAL (CATH LAB) 10000 UNIT IV (09:56)
[2024-06-24] MEDS: HYDRALAZINE 20MG/ML VIAL 20 MG IV (10:35)
[2024-06-24] MEDS: PROMETHAZINE HCL 25MG/ML 1ML VIAL 25 MG IV (11:16)
--- NOTE | 2024-06-24 13:08 | HMH.PHAINT1 ---
Pharmacy Intervention Comments: MEDICATION RECONCILIATION COMPLETED ON PATIENT USING EXTERNAL FILL HISTORY FROM PHARMACY AND LIST FROM CARDIOLOGY/PCP OFFICE. -BALJIT SANTOSD
[2024-06-24] MEDS: MORPHINE 2MG/ML SYRINGE 2 MG IV (13:09)
[2024-06-24] MEDS: CLOPIDOGREL 75MG TAB 75 MG PO (13:10)
--- NOTE | 2024-06-24 13:22 | PC.NURSE ---
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
[2024-06-24] MEDS: MORPHINE 4MG/ML SYRINGE 4 MG IV (14:43)
[2024-06-24] MEDS: LACTATED RINGERS 1000ML 1,000 ML 100 ML IV (14:43)
--- NOTE | 2024-06-24 14:54 | EXP.HP ---
History of Present Illness *Admission Date: 06/24/24 *Reason for visit:: Leg pain, elective arteriogram of lower extremities *History of present illness: 68-year-old male with progressive weakness and pain in his legs with exertion. Had abnormal ABIs and was seen as an outpatient by cardiology. Brought in electively for lower extremity arteriograms. Found to have significant arterial occlusions. Difficulty with access points due to calcification. Underwent stenting and angioplasty of bilateral lower extremities. Occlusion and left external iliac artery stented open. Tolerated procedure well but at high risk for bleeding. Discussed case with cardiology, request admission for monitoring overnight, gentle hydration, and repeat labs in the morning. Medicine agreed to admit for observation. On arrival to the floor, patient reports being longtime smoker. Also diabetic. Denies any chest pain or shortness of breath but has been having significant pain and aching with walking that is limited his ability to be active. Progressively getting worse. at bedside [facility] Disclaimer: The information contained in this section may have been updated after the patient was seen, as this information can be updated by other users. Medical History DM2 (diabetes mellitus, type 2) Abnormal ankle brachial index (ALMA) Claudication Family History No significant family history Social History Smoking Status: Former smoker alcohol intake: never substance use type: denies use current occupational status: other Travel in the last 8 weeks: None Review of Systems Review of Systems Review of systems (narrative): 14 point review of systems performed, pertinent positives and negatives as per HPI Meds Home Medications and Allergies Home Medications ?Medication ?Instructions ?Recorded ?Confirmed ?Type atorvastatin 80 mg tablet 80 mg PO DAILY #30 tabs 04/30/24 06/24/24 Rx fenofibrate 54 mg tablet 54 mg PO DAILY #30 tabs 04/30/24 06/24/24 Rx semaglutide 0.25 mg or 0.5 mg (2 0.25 mg (0.368 mL) SQ WEEKLY #3 mL 05/14/24 06/24/24 Rx mg/3 mL) subcutaneous pen injector (Ozempic) albuterol sulfate 90 mcg/actuation 4 inh inhalation Q4HP PRN 06/24/24 06/24/24 History aerosol inhaler shortness of breath or wheezing aspirin 81 mg chewable tablet 81 mg PO DAILY 06/24/24 06/24/24 History cholecalciferol (vitamin D3) 250 250 mcg PO DAILY 06/24/24 06/24/24 History mcg (10,000 unit) capsule clopidogrel 75 mg tablet 75 mg PO DAILY 06/24/24 06/24/24 History lisinopril 10 mg tablet 10 mg PO DAILY 06/24/24 06/24/24 History metoprolol tartrate 25 mg tablet 25 mg PO BID 06/24/24 06/24/24 History New Prescriptions to Start Prescriptions: Allergies Allergy/AdvReac Type Severity Reaction Status Date / Time codeine [CODEINE] Allergy Unknown Rash Verified 06/03/24 13:30 Exam Data for Last 24 hours Vital signs and Labs for Last 24 Hours: Temp Pulse Resp BP Pulse Ox O2 Del Method 98.3 F 80 19 120/64 98 Room Air 06/24/24 12:20 06/24/24 13:05 06/24/24 13:05 06/24/24 13:05 06/24/24 13:05 06/24/24 13:05 Laboratory Results - last 24 hr 06/24/24 08:07: WBC 7.7, RBC 4.87, Hgb 15.3, Hct 47.2, MCV 97.1 H, MCH 31.4 H, MCHC 32.4, RDW 14.3, Plt Count 158, MPV 9.2, Neut % (Auto) 51.2, Lymph % (Auto) 36.1, [place] % (Auto) 5.3, Eos % (Auto) 6.0, Baso % (Auto) 1.4, Neut # (Auto) 3.9, Lymph # (Auto) 2.8, [place] # (Auto) 0.4, Eos # (Auto) 0.5 H, Baso # (Auto) 0.1, Sodium 141, Potassium 4.2, Chloride 109 H, Carbon Dioxide 25, Anion Gap 11.2, BUN 10, Creatinine 0.70, Estimated Creat Clear 87, Estimated GFR 112, Est GFR ( Amer) 136, Glucose 158 H, Calcium 9.3 I & O for Last 24 hours: Intake & Output 0806/22/24 06/23/24 06/24/24 23:59 23:59 23:59 23:59 Weight 87.09 kg Constitutional Constitutional: no acute distress, obese and cooperative *Routine HEENT Exam Head: Present normocephalic Eye: Present EOMI and PERRL ENT: Present mucous membranes moist *Routine Neck Exam Neck: Present supple; Absent lymphadenopathy *Routine Respiratory Exam Respiratory: Present wheezes; Absent accessory muscle use, rhonchi or crackles *Routine Cardiovascular Exam Cardiovascular: Present RRR *Routine Abdominal Exam Abdominal: Present soft and normoactive bowel sounds; Absent tenderness *Routine Rectal Exam Rectal:: deferred *Routine Genitalia Exam Genitalia:: deferred Comment:: Right femoral artery insertion sites clean dry and intact. No significant hematoma or bruising *Routine Extremities Exam Extremities: Absent cyanosis, clubbing or edema Comments: Right wrist with compression band *Routine Skin Exam Skin: Present warm; Absent rash *Routine Neurological Exam Neurological: Present alert, oriented X3 and moving all extremities; Absent altered mental status Assessment and Plan *Assessment and plan (1) DM2 (diabetes mellitus, type 2): Status: Acute Category: Medical Code(s): E11.9 - Type 2 diabetes mellitus without complications (2) Claudication: Status: Acute Category: Medical Code(s): I73.9 - Peripheral vascular disease, unspecified (3) Peripheral vascular disease: Status: Acute Category: Medical Code(s): I73.9 - Peripheral vascular disease, unspecified (4) CAD (coronary artery disease): Status: Acute Qualifiers: Associated angina: unspecified whether angina present Coronary Disease-Associated Artery/Lesion type: unspecified vessel or lesion type [place] vs. transplanted heart: [place] heart Qualified Code(s): I25.10 - Atherosclerotic heart disease of [place] coronary artery without angina pectoris Category: Medical Code(s): I25.10 - Atherosclerotic heart disease of [place] coronary artery without angina pectoris (5) Hyperlipidemia: Status: Chronic Qualifiers: Hyperlipidemia type: mixed hyperlipidemia Qualified Code(s): E78.2 - Mixed hyperlipidemia Category: Medical Code(s): E78.5 - Hyperlipidemia, unspecified (6) HTN (hypertension): Status: Chronic Qualifiers: Hypertension type: primary hypertension Qualified Code(s): I10 - Essential (primary) hypertension Category: Medical Code(s): I10 - Essential (primary) hypertension (7) Tobacco use disorder: Status: Chronic Category: Medical Code(s): F17.200 - Nicotine dependence, unspecified, uncomplicated (8) Obesity (BMI 30.0-34.9): Status: Chronic Category: Medical Code(s): E66.9 - Obesity, unspecified Plan 68-year-old male with history of tobacco use disorder, diabetes, hypertension, CAD, PAD. Presented with claudication. Taken for elective procedure. Discussed case with cardiology, request admission for monitoring due to extent of contrast, difficulty with access, and need to monitor kidney function and hemoglobin. I agreed to admit for further management. Hemodynamically stable. No active signs of bleeding at time of admission to the floor. Problems addressed as follows: CAD PAD with claudication -Status post arteriogram. See procedure note for full details. Taken to [facility] [employer] electively, angioplasty performed with stenting of left external iliac artery. Improved flow achieved. Will continue aspirin 81 mg daily and Plavix 75 mg daily -Has to lay flat, will continue to monitor inpatient. Administer 1 L IV LR over 10 hours. -Kidney function normal with BUN 10, creatinine 0.7. Hemoglobin 15.3. Repeat CBC, CMP, magnesium ordered for the morning. Diabetes: Last A1c 7.7 two months ago. Continue Ozempic at home. Continue sliding scale insulin and fingersticks ACHS during admission. Hypertension: Continue lisinopril 10 mg daily and metoprolol 25 mg twice daily Hyperlipidemia: Continue fenofibrate 54 mg daily and Lipitor 80 mg nightly COPD: DuoNebs as needed every 6 hours Tobacco use disorder: Nicotine patch daily Obesity complicates all aspects of his care Full code Heparinized in cath Diabetic diet
[2024-06-24] MEDS: PROPOFOL 10MG/ML 20ML VIAL 160 MG IV (15:47)
[2024-06-24] MEDS: IOPAMIDOL-250 (51%) 100ML BOT 260 ML IV (15:51)
[2024-06-24 15:53] LABS: CATHL Activated Clotting Time 269 SEC (74-125)
[2024-06-24 15:53] LABS: CATHL Activated Clotting Time 167 SEC (74-125)
[2024-06-24] MEDS: humaLOG 100 UNITS/ML 10ML VIAL (SSI) SQ (17:15)
[2024-06-24 17:27] LABS: POC Glucose,Bedside 211 (70-110)
--- NOTE | 2024-06-24 17:53 | PC.NURSE ---
new admit this shift from [employer] labou[employer]. aox4, able to make needs known to staff. has c.o back pain off and on since arrival to floor. dr matta made aware. pt received 2 stents to iliac artery. 3 cath sites include bilateral femoral and right wrist. iv fluids infusing per order. medicated for pain per jan.
[2024-06-24] MEDS: IPRATROPIUM/ALBUTEROL 3 ML NEB IH (18:28)
[2024-06-24 20:36] LABS: POC Glucose,Bedside 143 (70-110)
[2024-06-24] MEDS: METOPROLOL TARTRATE 25MG TABLET 25 MG PO (20:51)
[2024-06-25] VITALS (7 sets, daily range): BP systolic 104–122; BP diastolic 52–57; PULSE 78–91; RESP 16–18; TEMP 36.8–37; O2SAT 91–97; BMI 31.1
[2024-06-25] MEDS: IPRATROPIUM/ALBUTEROL 3 ML NEB IH ×3 (00:09→11:11)
--- NOTE | 2024-06-25 04:52 | PC.NURSE ---
bilateral groin site drsg c/d/i, no hematoma or bleeding noted. right radial site drsg c/d/i, no hematoma or bleeding noted. dopplerable pt and dp.
[2024-06-25 05:53] LABS: POC Glucose,Bedside 136 (70-110)
[2024-06-25 06:54] LABS: Eosinophils # 0.2 K/mm3 (0.0-0.4); Neutrophils % 60.6 % (37.0-80.0); Platelet Count 129 K/mm3 (142-424); Red Cell Distribution Width 14.7 % (11.5-17.5)
[2024-06-25 06:55] LABS: Chloride 108 mmol/L (98-107)
[2024-06-25 06:56] LABS: Albumin Level 3.3 g/dl (3.5-5.0); Potassium 3.5 mmoL/L (3.5-5.1); Sodium 138 mmol/L (136-145)
[2024-06-25 06:59] LABS: Alanine Aminotransferase 20 U/L (12-78); Alkaline Phosphatase 61 U/L (38-126); Aspartate Amino Transferase 23 U/L (17-59); Bilirubin,Total 0.6 mg/dl (0.2-1.3); Blood Urea Nitrogen 14 mg/dl (9-20); Creatinine Clearance Estimated 90 mL/min (50-200); Estimated Glomerular Filt Rate 96 ml/min (>60); GFR (African American) 116 ML/MIN (>60); Glucose 131 mg/dl (74-100); Magnesium 1.5 mg/dl (1.6-2.3); Total Protein,Serum 5.6 g/dl (6.3-8.2)
[2024-06-25 07:00] LABS: Basophils # 0.1 K/mm3 (0-0.2); Basophils % 0.7 % (0.1-2.0); Eosinophils % 2.3 % (0.1-12.0); Lymphocytes # 2.4 K/mm3 (0.7-4.5); Lymphocytes % 30.8 % (10-50); Mean Corpuscular HGB Conc 32.9 g/dL (31.8-35.4); Mean Corpuscular Hemoglobin 31.1 pg (27.0-31.2); Mean Corpuscular Volume 94.5 fl (80-94); Monocytes # 0.4 K/mm3 (0.1-1.0); Monocytes % 5.5 % (1.7-9.3); Neutrophils # 4.7 K/mm3 (1.8-7.8); Red Blood Count 4.13 M/mm3 (4.60-6.20); White Blood Count 7.8 K/mm3 (4.8-10.8)
[2024-06-25 07:02] LABS: Hemoglobin 12.8 g/dL (14.1-18.0)
[2024-06-25 07:08] LABS: Albumin/Globulin Ratio 1.4 (1.1-1.8); Globulin 2.3 g/dL (1.3-3.2)
--- NOTE | 2024-06-25 07:18 | EXP.DC.SUM ---
General Admission date:: 06/24/24 Discharge date: 06/25/24 HPI HPI HPI: 68-year-old male with progressive weakness and pain in his legs with exertion. Had abnormal ABIs and was seen as an outpatient by cardiology. Brought in electively for lower extremity arteriograms. Found to have significant arterial occlusions. Difficulty with access points due to calcification. Underwent stenting and angioplasty of bilateral lower extremities. Occlusion and left external iliac artery stented open. Tolerated procedure well but at high risk for bleeding. Discussed case with cardiology, request admission for monitoring overnight, gentle hydration, and repeat labs in the morning. Medicine agreed to admit for observation. On arrival to the floor, patient reports being longtime smoker. Also diabetic. Denies any chest pain or shortness of breath but has been having significant pain and aching with walking that is limited his ability to be active. Progressively getting worse. at bedside Hospital Course Hospital Course Hospital Course: 68-year-old male with history of tobacco use disorder, diabetes, hypertension, CAD, PAD. Presented with claudication. Taken for elective procedure. Discussed case with cardiology, request admission for monitoring due to extent of contrast, difficulty with access, and need to monitor kidney function and hemoglobin. I agreed to admit for further management. Hemodynamically stable. No active signs of bleeding at time of admission to the floor. Remained stable overnight. Insertion sites with no significant bleeding or hematoma. Stable to discharge home on goal-directed therapy. Problems addressed as follows: CAD PAD with claudication -Status post arteriogram. See procedure note for full details. Taken to [employer] electively, angioplasty performed with stenting of left external iliac artery. Improved flow achieved. Continuing aspirin 81 mg daily and Plavix 75 mg daily. Monitored overnight and administered fluids. Kidney function remained normal with BUN 14, creatinine 0.8. Hemoglobin showed slight decrease but within normal range at 12.8 on morning of discharge. Recommend close follow-up with cardiology and repeat labs to monitor for any changes in kidney function or hemoglobin levels. Patient denies any pain. Stable to discharge home with outpatient follow-up Diabetes: Last A1c 7.7 two months ago. Continue Ozempic at home. Sliding scale insulin with fingersticks ACHS during admission. Resume home regimen at discharge. Hypertension: Continue lisinopril 10 mg daily and metoprolol 25 mg twice daily Hyperlipidemia: Continue fenofibrate 54 mg daily and Lipitor 80 mg nightly COPD: DuoNebs as needed every 6 hours. Would benefit from smoking cessation. Recommended nicotine patches at discharge due to tobacco use disorder. Expressed desire to quit smoking Exam Data for Last 24 hours Vital signs and Labs for Last 24 Hours: Temp Pulse Resp BP Pulse Ox O2 Del Method O2 Flow Rate 98.6 F 82 18 122/57 L 91 L Room Air 2 06/25/24 04:00 06/25/24 06:00 06/25/24 04:00 06/25/24 04:00 06/25/24 06:00 06/25/24 06:54 06/24/24 20:40 Laboratory Results - last 24 hr 06/24/24 08:07: WBC 7.7, RBC 4.87, Hgb 15.3, Hct 47.2, MCV 97.1 H, MCH 31.4 H, MCHC 32.4, RDW 14.3, Plt Count 158, MPV 9.2, Neut % (Auto) 51.2, Lymph % (Auto) 36.1, [place] % (Auto) 5.3, Eos % (Auto) 6.0, Baso % (Auto) 1.4, Neut # (Auto) 3.9, Lymph # (Auto) 2.8, [place] # (Auto) 0.4, Eos # (Auto) 0.5 H, Baso # (Auto) 0.1, Sodium 141, Potassium 4.2, Chloride 109 H, Carbon Dioxide 25, Anion Gap 11.2, BUN 10, Creatinine 0.70, Estimated Creat Clear 87, Estimated GFR 112, Est GFR ( Amer) 136, Glucose 158 H, Calcium 9.3 06/24/24 10:36: Activated Clotting Time 269 H* 06/24/24 11:50: Activated Clotting Time 167 H* D 06/24/24 17:05: POC Glucose 211 H 06/24/24 20:27: POC Glucose 143 H 06/25/24 05:46: POC Glucose 136 H 06/25/24 06:31: WBC 7.8, RBC 4.13 L, Hgb 12.8 L D, Hct 39.0 L, MCV 94.5 H, MCH 31.1, MCHC 32.9, RDW 14.7, Plt Count 129 L, MPV 9.0, Neut % (Auto) 60.6, Lymph % (Auto) 30.8, [place] % (Auto) 5.5, Eos % (Auto) 2.3, Baso % (Auto) 0.7, Neut # (Auto) 4.7, Lymph # (Auto) 2.4, [place] # (Auto) 0.4, Eos # (Auto) 0.2, Baso # (Auto) 0.1, Sodium 138, Potassium 3.5, Chloride 108 H, Carbon Dioxide 25, BUN 14 D, Creatinine 0.80, Estimated Creat Clear 90, Estimated GFR 96, Est GFR ( Amer) 116, Glucose 131 H, Calcium 8.0 L, Magnesium 1.5 L, Total Bilirubin 0.6, AST 23, ALT 20, Alkaline Phosphatase 61, Total Protein 5.6 L, Albumin 3.3 L, Globulin 2.3, Albumin/Globulin Ratio 1.4 I & O for Last 24 hours: Intake & Output 06/22/24 06/23/24 06/24/24 06/25/24 23:59 23:59 23:59 23:59 Intake Total 955 / 955 Output Total 400 / 400 0 / 0 Balance -400 / -60 955 / 955 Weight 87.09 kg 90.038 kg Constitutional Constitutional: no acute distress, obese, chronically ill appearing and cooperative *Routine HEENT Exam Head: Present normocephalic Eye: Present EOMI and PERRL ENT: Present mucous membranes moist *Routine Neck Exam Neck: Present supple; Absent lymphadenopathy *Routine Respiratory Exam Respiratory: Present wheezes and normal respiratory effort; Absent rhonchi or crackles *Routine Cardiovascular Exam Cardiovascular: Present RRR *Routine Abdominal Exam Abdominal: Present soft and normoactive bowel sounds; Absent tenderness *Routine Rectal Exam Patient deferred: visual exam *Routine Exam Patient deferred: penile exam *Routine Extremities Exam Extremities: Absent cyanosis, clubbing or edema Comments: No thrill or hematoma and right or left femoral insertion sites. Bandages clean, dry, intact *Routine Skin Exam Skin: Present warm; Absent rash *Routine Neurological Exam Neurological: Present alert, oriented X3 and moving all extremities; Absent altered mental status Results Data Completed and Pending Labs on day of discharge: Labs from last 24 hours 06/25/24 06/25/24 06/24/24 06:31 05:46 20:27 WBC 7.8 RBC 4.13 L Hgb 12.8 L D Hct 39.0 L MCV 94.5 H MCH 31.1 MCHC 32.9 RDW 14.7 Plt Count 129 L MPV 9.0 Neut % (Auto) 60.6 Lymph % (Auto) 30.8 [place] % (Auto) 5.5 Eos % (Auto) 2.3 Baso % (Auto) 0.7 Neut # (Auto) 4.7 Lymph # (Auto) 2.4 [place] # (Auto) 0.4 Eos # (Auto) 0.2 Baso # (Auto) 0.1 Activated Clotting Time Sodium 138 Potassium 3.5 Chloride 108 H Carbon Dioxide 25 Anion Gap BUN 14 D Creatinine 0.80 Estimated Creat Clear 90 Estimated GFR 96 Est GFR ( Amer) 116 Glucose 131 H POC Glucose 136 H 143 H Calcium 8.0 L Magnesium 1.5 L Total Bilirubin 0.6 AST 23 ALT 20 Alkaline Phosphatase 61 Total Protein 5.6 L Albumin 3.3 L Globulin 2.3 Albumin/Globulin Ratio 1.4 06/24/24 06/24/24 06/24/24 17:05 11:50 10:36 WBC RBC Hgb Hct MCV MCH MCHC RDW Plt Count MPV Neut % (Auto) Lymph % (Auto) [place] % (Auto) Eos % (Auto) Baso % (Auto) Neut # (Auto) Lymph # (Auto) [place] # (Auto) Eos # (Auto) Baso # (Auto) Activated Clotting Time 167 H* D 269 H* Sodium Potassium Chloride Carbon Dioxide Anion Gap BUN Creatinine Estimated Creat Clear Estimated GFR Est GFR ( Amer) Glucose POC Glucose 211 H Calcium Magnesium Total Bilirubin AST ALT Alkaline Phosphatase Total Protein Albumin Globulin Albumin/Globulin Ratio 06/24/24 08:07 WBC 7.7 RBC 4.87 Hgb 15.3 Hct 47.2 MCV 97.1 H MCH 31.4 H MCHC 32.4 RDW 14.3 Plt Count 158 MPV 9.2 Neut % (Auto) 51.2 Lymph % (Auto) 36.1 [place] % (Auto) 5.3 Eos % (Auto) 6.0 Baso % (Auto) 1.4 Neut # (Auto) 3.9 Lymph # (Auto) 2.8 [place] # (Auto) 0.4 Eos # (Auto) 0.5 H Baso # (Auto) 0.1 Activated Clotting Time Sodium 141 Potassium 4.2 Chloride 109 H Carbon Dioxide 25 Anion Gap 11.2 BUN 10 Creatinine 0.70 Estimated Creat Clear 87 Estimated GFR 112 Est GFR ( Amer) 136 Glucose 158 H POC Glucose Calcium 9.3 Magnesium Total Bilirubin AST ALT Alkaline Phosphatase Total Protein Albumin Globulin Albumin/Globulin Ratio DS: Diagnosis Discharge Diagnosis (1) DM2 (diabetes mellitus, type 2): Status: Acute Code(s): E11.9 - Type 2 diabetes mellitus without complications (2) Claudication: Status: Acute Code(s): I73.9 - Peripheral vascular disease, unspecified (3) Peripheral vascular disease: Status: Acute Code(s): I73.9 - Peripheral vascular disease, unspecified (4) CAD (coronary artery disease): Status: Acute Code(s): I25.10 - Atherosclerotic heart disease of [place] coronary artery without angina pectoris Qualifiers: Associated angina: unspecified whether angina present Coronary Disease-Associated Artery/Lesion type: unspecified vessel or lesion type [place] vs. transplanted heart: [place] heart Qualified Code(s): I25.10 - Atherosclerotic heart disease of [place] coronary artery without angina pectoris (5) Hyperlipidemia: Status: Chronic Code(s): E78.5 - Hyperlipidemia, unspecified Qualifiers: Hyperlipidemia type: mixed hyperlipidemia Qualified Code(s): E78.2 - Mixed hyperlipidemia (6) HTN (hypertension): Status: Chronic Code(s): I10 - Essential (primary) hypertension Qualifiers: Hypertension type: primary hypertension Qualified Code(s): I10 - Essential (primary) hypertension (7) Tobacco use disorder: Status: Chronic Code(s): F17.200 - Nicotine dependence, unspecified, uncomplicated (8) Obesity (BMI 30.0-34.9): Status: Chronic Code(s): E66.9 - Obesity, unspecified Meds Home Medications and Allergies Home Medications ?Medication ?Instructions ?Recorded ?Confirmed ?Type atorvastatin 80 mg tablet 80 mg PO DAILY #30 tabs 04/30/24 06/24/24 Rx fenofibrate 54 mg tablet 54 mg PO DAILY #30 tabs 04/30/24 06/24/24 Rx semaglutide 0.25 mg or 0.5 mg (2 0.25 mg (0.368 mL) SQ WEEKLY #3 mL 05/14/24 06/24/24 Rx mg/3 mL) subcutaneous pen injector (Ozempic) albuterol sulfate 90 mcg/actuation 4 inh inhalation Q4HP PRN 06/24/24 06/24/24 History aerosol inhaler shortness of breath or wheezing aspirin 81 mg chewable tablet 81 mg PO DAILY 06/24/24 06/24/24 History cholecalciferol (vitamin D3) 250 250 mcg PO DAILY 06/24/24 06/24/24 History mcg (10,000 unit) capsule clopidogrel 75 mg tablet 75 mg PO DAILY 06/24/24 06/24/24 History lisinopril 10 mg tablet 10 mg PO DAILY 06/24/24 06/24/24 History metoprolol tartrate 25 mg tablet 25 mg PO BID 06/24/24 06/24/24 History New Prescriptions to Start Prescriptions: Allergies Allergy/AdvReac Type Severity Reaction Status Date / Time codeine [CODEINE] Allergy Unknown Rash Verified 06/03/24 13:30 Discharge Plan Disposition Patient Disposition: Home, Self-Care Condition: Fair Follow up Plan Follow up with: Rikki Lynn MD [Staff Physician] - 07/08/24 9:00 am Prescriptions/Medication Reconciliation: Continued Ozempic 0.25 mg or 0.5 mg (2 mg/3 mL) pen injector 0.25 mg SQ WEEKLY Qty: 3 2RF atorvastatin 80 mg tablet 80 mg PO DAILY Qty: 30 2RF fenofibrate 54 mg tablet 54 mg PO DAILY Qty: 30 2RF clopidogrel 75 mg tablet 75 mg PO DAILY lisinopril 10 mg tablet 10 mg PO DAILY aspirin 81 mg tablet,chewable 81 mg PO DAILY albuterol sulfate 90 mcg/actuation HFA aerosol inhaler 4 inh inhalation Q4HP PRN (Reason: shortness of breath or wheezing) metoprolol tartrate 25 mg tablet 25 mg PO BID cholecalciferol (vitamin D3) 250 mcg (10,000 unit) capsule 250 mcg PO DAILY Problem Reconciliation Problems Reviewed?: Yes Patient Discharge Instructions ACTIVITY: Continue current activity DIET: continue same diet Patient Instructions: Cardiac Catheterization, Peripheral Artery Disease, Surgical Site Infection, Cardiology Catheterization Patient / Family Discharge Instructions, Post TransRadial Cath Discharge Instructions Print Language: Kisw[place]ili Providers Primary Care Provider: Preston Cho Admit Provider: Manoj Meeks Attending Provider: Manoj Meeks
[2024-06-25] MEDS: LISINOPRIL 10MG TABLET 10 MG PO (07:50)
[2024-06-25] MEDS: ASPIRIN 81MG CHEWABLE TABLET 81 MG PO (07:50)
[2024-06-25] MEDS: ATORVASTATIN 40MG TABLET 80 MG PO (07:50)
[2024-06-25] MEDS: CLOPIDOGREL 75MG TAB 75 MG PO (07:50)
[2024-06-25] MEDS: MAGNESIUM SULFATE IN WATER 2 GM/50 ML PIGGYBACK IV (07:51)
[2024-06-25] MEDS: METOPROLOL TARTRATE 25MG TABLET 25 MG PO (07:51)
[2024-06-25 08:00] LABS: Anion Gap 8.5 mEq/L (5-15); Carbon Dioxide 25 mmol/L (22.0-30.0)
--- NOTE | 2024-06-25 10:20 | P.CONCA_ITS ---
History of Present Illness History of Present Illness Consult date: 06/25/24 Requesting physician: Manoj Meeks Consult reason: known to you Chief complaint: BLE claudication History of present illness: 68-year-old white male well-established patient of our office with history of CAD status post drug-eluting stents in 2002 and 2010. He also has diabetes hypertension and is a former smoker. Recently with worsening bilateral lower extremity claudication also with occasional rest pain. Came in for elective outpatient bolus delvin angiogram yesterday. He had extensive disease noted in his left external iliac artery which was reconstructed successfully with 2 stents reducing 100% occlusion to 0%. He was also noted to have bilateral SFA disease left to medical therapy for now. He was kept overnight due to 3 separate arterial sticks and copious contrast administration. This morning he denies symptoms. All 3 cath sites are soft nontender and nonbruised on examination. His creatinine is stable at 0.8. Hemoglobin down slightly from 15.3-12.8. His vital signs are normal. He did have some hypoxic episodes overnight likely due to untreated sleep apnea versus nocturnal hypoxia. He is agreeable to assess this outpatient. Patient feels ready for discharge [facility] Disclaimer: The information contained in this section may have been updated after the patient was seen, as this information can be updated by other users. Medical History DM2 (diabetes mellitus, type 2) Abnormal ankle brachial index (ALMA) Claudication Family History Other No significant family history Social History Smoking Status: Former smoker alcohol intake: never substance use type: denies use current occupational status: other Travel in the last 8 weeks: None Review of Systems Constitutional Constitutional: Denies fatigue and Denies weakness Eyes Eyes: Denies loss of vision ENT Ears, Nose, Mouth, and Throat: Denies hearing loss and Denies vertigo *Cardiovascular Cardiovascular: Denies chest pain, Denies dyspnea and Denies syncope *Respiratory Respiratory: Denies cough and Denies dyspnea *Gastrointestinal Gastrointestinal: Denies change in stool character, Denies nausea and Denies vomiting *Genitourinary Genitourinary: Denies difficulty urinating *Musculoskeletal Musculoskeletal: Denies muscle weakness Integumentary/Breasts Skin/Breast: Denies changing lesions *Neurologic Neurologic: Denies loss of vision, Denies syncope, Denies vertigo and Denies weakness Endocrine Endocrine: Denies fatigue Exam Data for Last 24 hours Vital signs and Labs for Last 24 Hours: Temp Pulse Resp BP Pulse Ox O2 Del Method O2 Flow Rate 98.5 F 91 H 18 104/53 L 93 L Room Air 2 06/25/24 08:00 06/25/24 08:00 06/25/24 08:00 06/25/24 08:00 06/25/24 08:00 06/25/24 10:06 06/24/24 20:40 Laboratory Results - last 24 hr 06/24/24 10:36: Activated Clotting Time 269 H* 06/24/24 11:50: Activated Clotting Time 167 H* D 06/24/24 17:05: POC Glucose 211 H 06/24/24 20:27: POC Glucose 143 H 06/25/24 05:46: POC Glucose 136 H 06/25/24 06:31: WBC 7.8, RBC 4.13 L, Hgb 12.8 L D, Hct 39.0 L, MCV 94.5 H, MCH 31.1, MCHC 32.9, RDW 14.7, Plt Count 129 L, MPV 9.0, Neut % (Auto) 60.6, Lymph % (Auto) 30.8, [place] % (Auto) 5.5, Eos % (Auto) 2.3, Baso % (Auto) 0.7, Neut # (Auto) 4.7, Lymph # (Auto) 2.4, [place] # (Auto) 0.4, Eos # (Auto) 0.2, Baso # (Auto) 0.1, Sodium 138, Potassium 3.5, Chloride 108 H, Carbon Dioxide 25, Anion Gap 8.5, BUN 14 D, Creatinine 0.80, Estimated Creat Clear 90, Estimated GFR 96, Est GFR ( Amer) 116, Glucose 131 H, Calcium 8.0 L, Magnesium 1.5 L, Total Bilirubin 0.6, AST 23, ALT 20, Alkaline Phosphatase 61, Total Protein 5.6 L, Albumin 3.3 L, Globulin 2.3, Albumin/Globulin Ratio 1.4 I & O for Last 24 hours: Intake & Output 06/22/24 06/23/24 06/24/24 06/25/24 23:59 23:59 23:59 23:59 Intake Total 1485 / 1485 Output Total 400 / 400 0 / 0 Balance -400 / -60 1485 / 1485 Weight 192 lb 198 lb 8 oz Constitutional Constitutional: no acute distress and cooperative *Routine HEENT Exam Eye: Present PERRL *Routine Respiratory Exam Respiratory: Present CTA bilaterally; Absent accessory muscle use, wheezes or crackles *Routine Cardiovascular Exam Cardiovascular: Present RRR, Normal S1 and Normal S2; Absent murmur, gallop or rubs Comments: Bilateral groin and right radial cath sites are all normal on inspection and palpation. Nontender, nonswollen. *Routine Abdominal Exam Abdominal: Present soft; Absent tenderness *Routine Extremities Exam Extremities: Present pulses intact; Absent cyanosis or edema *Routine Skin Exam Skin: Present intact; Absent erythema or wounds *Routine Neurological Exam Neurological: Present alert and oriented X3 Routine Psychiatric Exam Psychiatric: Present cooperative Meds Home Medications and Allergies Home Medications ?Medication ?Instructions ?Recorded ?Confirmed ?Type atorvastatin 80 mg tablet 80 mg PO DAILY #30 tabs 04/30/24 06/24/24 Rx fenofibrate 54 mg tablet 54 mg PO DAILY #30 tabs 04/30/24 06/24/24 Rx semaglutide 0.25 mg or 0.5 mg (2 0.25 mg (0.368 mL) SQ WEEKLY #3 mL 05/14/24 06/24/24 Rx mg/3 mL) subcutaneous pen injector (Ozempic) albuterol sulfate 90 mcg/actuation 4 inh inhalation Q4HP PRN 06/24/24 06/24/24 History aerosol inhaler shortness of breath or wheezing aspirin 81 mg chewable tablet 81 mg PO DAILY 06/24/24 06/24/24 History cholecalciferol (vitamin D3) 250 250 mcg PO DAILY 06/24/24 06/24/24 History mcg (10,000 unit) capsule clopidogrel 75 mg tablet 75 mg PO DAILY 06/24/24 06/24/24 History lisinopril 10 mg tablet 10 mg PO DAILY 06/24/24 06/24/24 History metoprolol tartrate 25 mg tablet 25 mg PO BID 06/24/24 06/24/24 History New Prescriptions to Start Prescriptions: Allergies Allergy/AdvReac Type Severity Reaction Status Date / Time codeine [CODEINE] Allergy Unknown Rash Verified 06/03/24 13:30 Assessment and Plan *Assessment and plan (1) Peripheral vascular disease: Status: Acute Category: Medical Code(s): I73.9 - Peripheral vascular disease, unspecified (2) Claudication: Status: Acute Category: Medical Code(s): I73.9 - Peripheral vascular disease, unspecified (3) CAD (coronary artery disease): Status: Acute Qualifiers: Coronary Disease-Associated Artery/Lesion type: unspecified vessel or lesion type [place] vs. transplanted heart: [place] heart Associated angina: unspecified whether angina present Qualified Code(s): I25.10 - Atherosclerotic heart disease of [place] coronary artery without angina pectoris Category: Medical Code(s): I25.10 - Atherosclerotic heart disease of [place] coronary artery without angina pectoris (4) Hypoxia: Status: Acute Category: Medical Code(s): R09.02 - Hypoxemia Plan PAD status post left iliac artery stenting 06/24 -New diagnosis this admission. Successful reconstruction of left external iliac artery -Severe bilateral SFA disease left to medical therapy for now -Home with aspirin, Plavix, statin. He needs to exercise daily to increase blood flow to his legs. If he continues to have symptoms may consider further intervention on bilateral SFA. CAD status post YULIA 2010 -CCS = 0 -EKG sinus rhythm without ischemic changes -Continue home meds Nocturnal hypoxia -New diagnosis this admission -Will check outpatient home sleep study Former tobacco use -Continue cessation efforts HLD -LDL 99 in April on atorvastatin 80 mg -Add Zetia 10 mg daily, if not less than 55 we will consider injectable therapy DM-II A1c 7.7 -On Ozempic Hypertension -Well-controlled -Continue lisinopril and metoprolol home dose CV stable for discharge home. Patient needs follow-up in our office 1 to 2 weeks.
[2024-06-25 10:25] LABS: POC Glucose,Bedside 164 (70-110)
[2024-06-25] MEDS: humaLOG 100 UNITS/ML 10ML VIAL (SSI) SQ (10:27)
[2024-06-25] MEDS: EZETIMIBE 10MG TABLET 10 MG PO (10:48)
--- NOTE | 2024-06-27 14:49 | CARE MANAGER ---
Unable to reach patient via phone to discuss recent discharge. VM left with call back information. Call attempted X 2.
== END 2024-06-25 13:37 | disposition home or self-care (01) ==
LOC: 2ND 12:54
PROVIDERS: Internal Medicine; Admitting Provider Internal Medicine Adolescent Medicine; PCP Internal Medicine; Visit Provider Internal Medicine Adolescent Medicine
DX: I70.223 Atherosclerosis of native arteries of extremities with rest pain, bilateral legs; I25.10 Atherosclerotic heart disease of native coronary artery without angina pectoris; I10 Essential (primary) hypertension; E78.2 Mixed hyperlipidemia; E11.9 Type 2 diabetes mellitus without complications; J44.9 Chronic obstructive pulmonary disease, unspecified; F17.210 Nicotine dependence, cigarettes, uncomplicated; E66.9 Obesity, unspecified; R09.02 Hypoxemia; Z79.899 Other long term (current) drug therapy; Z68.31 Body mass index [BMI] 31.0-31.9, adult; I70.92 Chronic total occlusion of artery of the extremities; I77.1 Stricture of artery
CPT/HCPCS: 36415; 37221; 75625; 75710; 80048; 80053; 82962; 83735; 85025; 85347; 94640; 99152; 99153; C1725; C1766; C1769; C1876; C1894; G0378; J1200; J1644; J2250; J2270; J2550; J3010; J3475; J7120; J7620; Q9966

== ENCOUNTER 2025-04-28 09:55 | Outpatient (CLI) | payer MEDICARE, SELFPAY ==
[2025-04-28 18:15] LABS: Basophils # 0.1 K/mm3 (0-0.2); Basophils % 1.3 % (0.1-2.0); Eosinophils # 0.3 Kmm3 (0.0-0.4); Eosinophils % 5.3 % (0.1-12.0); Hematocrit 43.8 % (42.0-52.0); Hemoglobin 14.6 g/dL (14.1-18.0); Immature Granulocytes # 0 10^3uL; Immature Granulocytes % 0 %; Lymphocytes # 2.6 K/mm3 (0.7-4.5); Lymphocytes % 42.2 % (10-50); Mean Corpuscular HGB Conc 33.3 g/dL (31.8-35.4); Mean Corpuscular Hemoglobin 31.1 pg (27.0-31.2); Mean Corpuscular Volume 93.4 fl (80-94); Mean Platelet Volume 12.2 fl (7.4-10.4); Monocytes # 0.3 K/mm3 (0.1-1.0); Monocytes % 5.3 % (1.7-9.3); Neutrophils # 2.8 K/mm3 (1.8-7.8); Neutrophils % 45.9 % (37.0-80.0); Nucleated Red Blood Cells # 0 10^3/uL; Nucleated Red Blood Cells % 0 %; Platelet Count 131 K/mm3 (142-424); Red Blood Count 4.69 M/mm3 (4.60-6.20); Red Cell Distribution Width 13.7 % (11.5-17.5); Red Cell Distribution Width-SD 46.4 fL; White Blood Count 6.1 K/mm3 (4.8-10.8)
[2025-04-28 19:13] LABS: Hemoglobin A1C 8.3 % (4.0-6.0)
[2025-04-28 19:18] LABS: Alanine Aminotransferase 20 U/L (12-78); Albumin Level 4.1 g/dl (3.5-5.0); Albumin/Globulin Ratio 1.8 (1.1-1.8); Alkaline Phosphatase 86 U/L (38-126); Anion Gap 10.4 mEq/L (5-15); Aspartate Amino Transferase 23 U/L (17-59); Bilirubin,Total 0.8 mg/dl (0.2-1.3); Blood Urea Nitrogen 11 mg/dl (9-20); Calcium 9.1 mg/dl (8.4-10.2); Carbon Dioxide 24 mmol/L (22.0-30.0); Chloride 105 mmol/L (98-107); Chol/HDL Ratio 3.7 (1-3.5); Cholesterol 143 mg/dl (140-200); Estimated Glomerular Filt Rate 134 ml/min (>60); GFR (African American) 162 ML/MIN (>60); Globulin 2.3 g/dL (1.3-3.2); Glucose 172 mg/dl (74-100); HDL Cholesterol 39 mg/dl (40-60); Potassium 4.4 mmoL/L (3.5-5.1); Sodium 135 mmol/L (136-145); Total Protein,Serum 6.4 g/dl (6.3-8.2); Triglycerides 181 mg/dl (30-150); VLDL Cholesterol 36 mg/dL (0-40)
[2025-04-28 19:29] LABS: Direct LDL Cholesterol 66.04 mg/dL (100-129)
[2025-04-28 19:36] LABS: 25-OH Vitamin D, Total 28.7 ng/mL (30-100)
== END 2025-04-28 23:59 | disposition home or self-care (01) ==
LOC: LAB.DROPOF 04-29 14:03
PROVIDERS: PCP Family Medicine; Visit Provider Family Medicine
DX: I25.10 Atherosclerotic heart disease of native coronary artery without angina pectoris (principal); E11.69 Type 2 diabetes mellitus with other specified complication; E78.2 Mixed hyperlipidemia; E55.9 Vitamin D deficiency, unspecified
CPT/HCPCS: 80053; 80061; 82306; 83036; 85025